=== PATIENT | female | born 1995 | race Caucasian/White ===

== ENCOUNTER 2016-09-29 16:59 | Emergency (ER) | payer MEDICAID, OTHER ==
[2016-09-29 17:43] VITALS: BP 135/76
--- NOTE | 2016-09-29 23:08 | Emergency Department Report ---
HPI - General Chief Complaint: Earache Time Seen by Provider: 09/29/16 23:01 - HPI HPI: Patient here reports robert ear pain, runny and congested nose. cough on/off for 9 days. She denies any fever. Pain is 9 out of 10 and throat. Negative chest pain or shortness of breath. She said [id number] cold and cough medicine is not helping. ED Past Medical Hx - Past Medical History Previous Medical History?: No Hx Hypertension: No Hx Diabetes: No Hx Deep Vein Thrombosis: No Hx Renal Disease: No Hx Sickle Cell Disease: No Hx Seizures: No Hx Asthma: No Hx HIV: No - Surgical History Past Surgical History?: No - Family History Family history: no significant - Social History Smoking Status: Former Smoker Substance Use Type: Alcohol, Non Opiate Pain - Medications Home Medications: Home Medications Medication Instructions Recorded Confirmed Last Taken Type Sulfamethoxazole/Trimethoprim 1 each PO BID #14 tablet 03/05/14 02/14/15 Unknown Rx [Bactrim Ds] Amoxicillin [Amoxicillin TAB] 875 mg PO BID #14 tablet 09/29/16 Unknown Rx Cetirizine HCl [ZyrTEC] 10 mg PO QDAY #20 capsule 09/29/16 Unknown Rx Fluticasone [Flonase] 1 spray NS QDAY #1 bottle 09/29/16 Unknown Rx Ibuprofen [Motrin 600 MG tab] 600 mg PO Q8H PRN #15 tablet 09/29/16 Unknown Rx predniSONE [Deltasone] 50 mg PO QDAY #5 tab 09/29/16 Unknown Rx ED Review of Systems ROS: Stated complaint: EAR/THROAT PAIN Other details as noted in HPI Comment: All other systems reviewed and negative Constitutional: denies: chills, fever, malaise, weakness ENT: ear pain, throat pain, congestion Respiratory: cough. denies: shortness of breath, SOB with exertion, SOB at rest , stridor, wheezing Cardiovascular: denies: chest pain, palpitations, edema, syncope Musculoskeletal: denies: back pain, arthralgia Skin: denies: rash Neurological: denies: headache, weakness, numbness, paresthesias, confusion, abnormal gait, vertigo Physical Exam - Physical Exam Vital Signs: Vital Signs 09/29/16 09/29/16 17:39 22:48 Temperature 98.5 F 98.5 F Pulse Rate 81 69 Respiratory 18 18 Rate Blood Pressure 135/76 O2 Sat by Pulse 99 100 Oximetry General: This is a 20-year-old female well-nourished well-developed in no acute distress. Physical Exam: Head: Normocephalic atraumatic Mouth: Moist, no pharyngeal exudate or erythema. Uvula is midline and oral airway is patent. No gingival enlargement or dental tenderness. No facial swelling. No peritonsillar abscesses. Neck: Supple, no C-spine tenderness, no tracheal deviation. Nontender to palpate. no adenopathy Ears: Bilateral TMs congested without erythema .bilateral EAC without any redness swelling or drainage Eyes: Bilateral pupils equal and reactive to light, bilateral EOM intact. Bilateral sclera and conjunctiva without injection. Normal accommodation Nose: Mucosa moist, positive congestion with erythema. Positive clear drainage. maxillary and frontal sinus non-tender to palpate. Lungs: Clear to auscultate bilaterally no rhonchi wheezes or rales. Normal work of breathing . Dry cough extremity; No CCE. +2 pulses. No neurovascular compromise Cardiovascular: S1-S2, regular rate rhythm. No murmurs. Skin: clean Dry and intact no rash no lesions Psych: Normal mood and behavior. ED Course Vital Signs 09/29/16 09/29/16 17:39 22:48 Temperature 98.5 F 98.5 F Pulse Rate 81 69 Respiratory 18 18 Rate Blood Pressure 135/76 O2 Sat by Pulse 99 100 Oximetry - Reevaluation(s) Reevaluation #1: 09/29/16 23:15 Patient stable throughout ED course ED Medical Decision Making - Medical Decision Making ED course: I discussed the patient is my physical finding she has sinus infection and will need to be treated with antibiotics consisting 9 days and she has tried [id number] medication which did not help. I instructed her that she needs to her nostrils with nasal saline twice a day. I discussed treatment plan with her. She reports understanding. Discharged home with prescription for amoxicillin, prednisone, Flonase and Motrin. Critical care attestation.: If time is entered above; I have spent that time in minutes in the direct care of this critically ill patient, excluding procedure time. ED Disposition Clinical Impression: Otalgia of both ears Acute ethmoidal sinusitis, unspecified Qualifiers: Recurrence: not specified as recurrent Qualified Code(s): J01.20 - Acute ethmoidal sinusitis, unspecified Pharyngitis Qualifiers: Pharyngitis/tonsillitis etiology: unspecified etiology Qualified Code(s): J02.9 - Acute pharyngitis, unspecified Disposition: DISCHARGED TO HOME OR SELFCARE Is pt being admited?: No Does the pt Need Aspirin: No Condition: Stable Instructions: Sinusitis (ED), Pharyngitis (ED), Earache (ED) Additional Instructions: Increase her fluid intake Take medication as prescribed followup with pcp in 3 to 5 days Prescriptions: Amoxicillin [Amoxicillin TAB] 875 mg PO BID #14 tablet predniSONE [Deltasone] 50 mg PO QDAY #5 tab Fluticasone [Flonase] 1 spray NS QDAY #1 bottle Ibuprofen [Motrin 600 MG tab] 600 mg PO Q8H PRN #15 tablet PRN Reason: Pain Cetirizine HCl [ZyrTEC] 10 mg PO QDAY #20 capsule Referrals: PRIMARY CARE, [Primary Care Provider] - 3-5 Days Forms: Work/School Release Form(ED)
== END 2016-09-29 23:30 | disposition home or self-care (01) ==
LOC: ED 16:59
DX: J01.20 Acute ethmoidal sinusitis, unspecified (principal); J02.9 Acute pharyngitis, unspecified; H92.03 Otalgia, bilateral; Z87.891 Personal history of nicotine dependence
CPT/HCPCS: 99282

== ENCOUNTER 2019-07-16 19:26 | Emergency (ER) | payer OTHER ==
[2019-07-16] MEDS ORDERED: IBUPROFEN 600 MG TAB PO ONE (21:09)
--- NOTE | 2019-07-16 21:09 | Emergency Department Report ---
Blank Doc - Documentation Documentation: 23-year-old female that presents with abscess in labia. This initial assessment/diagnostic orders/clinical plan/treatment(s) is/are subject to change based on patient's health status, clinical progression and re- assessment by fellow clinical providers in the ED. Further treatment and workup at subsequent clinical providers discretion. Patient/guardians urged not to elope from the ED as their condition may be serious if not clinically assessed and managed. Initial orders include: 1- Patient sent to [facility] for further evaluation and treatment 2- motrin for fever-RN to repeat vitals
[2019-07-17] MEDS ORDERED: LIDOCAINE (1%) 10 MG/1 ML VIAL 20 ML MDV INFILTRATI ONE (00:01)
[2019-07-17] MEDS ORDERED: HYDROcodone/ACETAMINOPHEN 5-325 MG TAB PO ONE (00:01)
[2019-07-17] MEDS ORDERED: AZITHROMYCIN 250 MG TAB PO ONE (00:30)
[2019-07-17] MEDS ORDERED: LIDOCAINE-MPF (1%) 10 MG/1 ML VIAL 5 ML INFILTRATI ONE (00:30)
--- NOTE | 2019-07-17 01:00 | Emergency Department Report ---
- General Chief complaint: Skin/Abscess/Foreign Body Stated complaint: FLU SX/VAG ABSCESS Time Seen by Provider: 07/16/19 21:08 Source: patient Mode of arrival: Ambulatory Limitations: No Limitations - History of Present Illness Initial comments: Ms. Contreras is a 23 y/o aaf with hx or recurring Bartholin abscess who presents for left labial abscess /cyst for last 3 days. symptoms include pain swelling , no drainage. There is no fever no chills , no n/v, no vaginal discharge or bleeding. symptoms are exacerbated by palpation, symptoms are relieved by nothing. MD complaint: abscess/boil Onset/Timin -: days(s) Tetanus Up to Date: yes Location: genitals Severity: moderate Severity scale (0 -10): 4 Quality: sharp Consistency: constant Improves with: none Worsens with: palpation, movement Associated symptoms: denies other symptoms Treatments Prior to Arrival: none - Related Data Previous Rx's Medication Instructions Recorded Last Taken Type Sulfamethoxazole/Trimethoprim 1 each PO BID #14 tablet 03/05/14 Unknown Rx [Bactrim Ds] Amoxicillin [Amoxicillin TAB] 875 mg PO BID #14 tablet 09/29/16 Unknown Rx Cetirizine HCl [ZyrTEC] 10 mg PO QDAY #20 capsule 09/29/16 Unknown Rx Fluticasone [Flonase] 1 spray NS QDAY #1 bottle 09/29/16 Unknown Rx Ibuprofen [Motrin 600 MG tab] 600 mg PO Q8H PRN #15 tablet 09/29/16 Unknown Rx predniSONE [Deltasone] 50 mg PO QDAY #5 tab 09/29/16 Unknown Rx ALBUTEROL Inhaler (OR & NICU) 2 puff IH Q6H PRN #1 inhalation 06/22/18 Unknown Rx [ProAir HFA Inhaler] Amoxicillin/K Clav Tab [Augmentin 1 tab PO Q12HR #20 tab 06/22/18 Unknown Rx 875MG TAB] Cetirizine HCl [ZyrTEC] 10 mg PO QAM 14 Days #14 capsule 06/22/18 Unknown Rx Fluticasone [Flonase] 1 spray NS QDAY 14 Days #1 bottle 06/22/18 Unknown Rx Ondansetron [Zofran Odt] 4 mg PO Q6H PRN #20 tab.rapdis 06/22/18 Unknown Rx guaiFENesin/CODEINE [Robitussin AC] 10 ml PO QHS PRN #70 oral.liqd 06/22/18 Unknown Rx methylPREDNISolone [Medrol Dose 4 mg PO DAILY #1 tab.ds.pk 06/22/18 Unknown Rx Carlos] cephALEXin [Keflex] 500 mg PO Q8HR 7 Days #21 cap 07/17/19 Unknown Rx metroNIDAZOLE [Flagyl] 500 mg PO BID 7 Days #14 tab 07/17/19 Unknown Rx traMADol [Ultram] 50 mg PO Q6HR PRN #12 tablet 07/17/19 Unknown Rx Allergies Allergy/AdvReac Type Severity Reaction Status Date / Time No Known Allergies Allergy Verified 02/14/15 16:33 Abscess Boil HPI - HPI Chief Complaint: Skin/Abscess/Foreign Body Stated Complaint: FLU SX/VAG ABSCESS Time Seen by Provider: 07/16/19 21:08 Home Medications: Previous Rx's Medication Instructions Recorded Last Taken Type Sulfamethoxazole/Trimethoprim 1 each PO BID #14 tablet 03/05/14 Unknown Rx [Bactrim Ds] Amoxicillin [Amoxicillin TAB] 875 mg PO BID #14 tablet 09/29/16 Unknown Rx Cetirizine HCl [ZyrTEC] 10 mg PO QDAY #20 capsule 09/29/16 Unknown Rx Fluticasone [Flonase] 1 spray NS QDAY #1 bottle 09/29/16 Unknown Rx Ibuprofen [Motrin 600 MG tab] 600 mg PO Q8H PRN #15 tablet 09/29/16 Unknown Rx predniSONE [Deltasone] 50 mg PO QDAY #5 tab 09/29/16 Unknown Rx ALBUTEROL Inhaler (OR & NICU) 2 puff IH Q6H PRN #1 inhalation 06/22/18 Unknown Rx [ProAir HFA Inhaler] Amoxicillin/K Clav Tab [Augmentin 1 tab PO Q12HR #20 tab 06/22/18 Unknown Rx 875MG TAB] Cetirizine HCl [ZyrTEC] 10 mg PO QAM 14 Days #14 capsule 06/22/18 Unknown Rx Fluticasone [Flonase] 1 spray NS QDAY 14 Days #1 bottle 06/22/18 Unknown Rx Ondansetron [Zofran Odt] 4 mg PO Q6H PRN #20 tab.rapdis 06/22/18 Unknown Rx guaiFENesin/CODEINE [Robitussin AC] 10 ml PO QHS PRN #70 oral.liqd 06/22/18 Unknown Rx methylPREDNISolone [Medrol Dose 4 mg PO DAILY #1 tab.ds.pk 06/22/18 Unknown Rx Carlos] cephALEXin [Keflex] 500 mg PO Q8HR 7 Days #21 cap 07/17/19 Unknown Rx metroNIDAZOLE [Flagyl] 500 mg PO BID 7 Days #14 tab 07/17/19 Unknown Rx traMADol [Ultram] 50 mg PO Q6HR PRN #12 tablet 07/17/19 Unknown Rx Allergies/Adverse Reactions: Allergies Allergy/AdvReac Type Severity Reaction Status Date / Time No Known Allergies Allergy Verified 02/14/15 16:33 ED Review of Systems ROS: Stated complaint: FLU SX/VAG ABSCESS Other details as noted in HPI Constitutional: denies: chills, fever Eyes: denies: eye pain, eye discharge, vision change ENT: denies: ear pain, throat pain Respiratory: denies: cough, shortness of breath, wheezing Cardiovascular: denies: chest pain, palpitations Endocrine: no symptoms reported Gastrointestinal: denies: abdominal pain, nausea, vomiting, diarrhea Genitourinary: other (cyst/abscess). denies: urgency, dysuria, frequency, he maturia, discharge Musculoskeletal: denies: back pain, joint swelling, arthralgia Skin: denies: rash, lesions Neurological: denies: headache, weakness, paresthesias Psychiatric: denies: anxiety, depression Hematological/Lymphatic: denies: easy bleeding, easy bruising ED Past Medical Hx - Past Medical History Hx Hypertension: No Hx Diabetes: No Hx Deep Vein Thrombosis: No Hx Renal Disease: No Hx Sickle Cell Disease: No Hx Seizures: No Hx Asthma: No Hx HIV: No Additional medical history: bronchitis - Social History Smoking Status: Current Every Day Smoker Substance Use Type: Alcohol - Medications Home Medications: Home Medications Medication Instructions Recorded Confirmed Last Taken Type Sulfamethoxazole/Trimethoprim 1 each PO BID #14 tablet 03/05/14 02/14/15 Unknown Rx [Bactrim Ds] Amoxicillin [Amoxicillin TAB] 875 mg PO BID #14 tablet 09/29/16 Unknown Rx Cetirizine HCl [ZyrTEC] 10 mg PO QDAY #20 capsule 09/29/16 Unknown Rx Fluticasone [Flonase] 1 spray NS QDAY #1 bottle 09/29/16 Unknown Rx Ibuprofen [Motrin 600 MG tab] 600 mg PO Q8H PRN #15 tablet 09/29/16 Unknown Rx predniSONE [Deltasone] 50 mg PO QDAY #5 tab 09/29/16 Unknown Rx ALBUTEROL Inhaler (OR & NICU) 2 puff IH Q6H PRN #1 inhalation 06/22/18 Unknown Rx [ProAir HFA Inhaler] Amoxicillin/K Clav Tab [Augmentin 1 tab PO Q12HR #20 tab 06/22/18 Unknown Rx 875MG TAB] Cetirizine HCl [ZyrTEC] 10 mg PO QAM 14 Days #14 capsule 06/22/18 Unknown Rx Fluticasone [Flonase] 1 spray NS QDAY 14 Days #1 bottle 06/22/18 Unknown Rx Ondansetron [Zofran Odt] 4 mg PO Q6H PRN #20 tab.rapdis 06/22/18 Unknown Rx guaiFENesin/CODEINE [Robitussin AC] 10 ml PO QHS PRN #70 oral.liqd 06/22/18 Unknown Rx methylPREDNISolone [Medrol Dose 4 mg PO DAILY #1 tab.ds.pk 06/22/18 Unknown Rx Carlos] cephALEXin [Keflex] 500 mg PO Q8HR 7 Days #21 cap 07/17/19 Unknown Rx metroNIDAZOLE [Flagyl] 500 mg PO BID 7 Days #14 tab 07/17/19 Unknown Rx traMADol [Ultram] 50 mg PO Q6HR PRN #12 tablet 07/17/19 Unknown Rx ED Physical Exam - General Limitations: No Limitations General appearance: alert, in no apparent distress - Head Head exam: Present: atraumatic, normocephalic - Eye Eye exam: Present: normal appearance - ENT ENT exam: Present: mucous membranes moist - Neck Neck exam: Present: normal inspection, full ROM. Absent: tenderness - Respiratory Respiratory exam: Present: normal lung sounds bilaterally. Absent: respiratory distress, wheezes, stridor - Cardiovascular Cardiovascular Exam: Present: regular rate, normal rhythm, normal heart sounds - GI/Abdominal GI/Abdominal exam: Present: soft, normal bowel sounds. Absent: distended, tenderness, guarding, rebound, rigid, bruit, hernia - Rectal Rectal exam: Present: deferred - External exam: Present: erythema, swelling, lesions (left bartholin abscess 2x3 cm ). Absent: lacerations, ecchymosis, bleeding - Extremities Exam Extremities exam: Present: normal inspection, full ROM. Absent: tenderness - Back Exam Back exam: Present: normal inspection, full ROM. Absent: tenderness, CVA tenderness (R), CVA tenderness (L) - Neurological Exam Neurological exam: Present: alert, oriented X3, CN II-XII intact, normal gait - Psychiatric Psychiatric exam: Present: normal affect, normal mood - Skin Skin exam: Present: warm, dry, intact, normal color. Absent: rash ED Course Vital Signs 07/16/19 19:33 Temperature 100.0 F H Pulse Rate 95 H Respiratory 14 Rate Blood Pressure 126/71 O2 Sat by Pulse 98 Oximetry - I & D Left Vagina Type of Procedure: Simple Site: Left labial Bartholin abscess 2x3 cm Blade Size: 11 I & D Procedure: betadine prep Progress: site cleaned with betadine solution, analgesia with 1% lidocaine 1 cc, incision with 11 blade x 1, moderate purulent drainage, wound irrigated with 10 sterile saline, all bleeding is controlled , pt tolerate procedure with minimal distress. ED Medical Decision Making - Medical Decision Making pt for I&D for bartholin cyst, see procedure note, all bleeding is controlled. pt tolerated procedure with minimal distress. pt given wound care instructions. pain is 0/10 at this time, pt will follow up with [facility] in 2-3 days.. Critical care attestation.: If time is entered above; I have spent that time in minutes in the direct care of this critically ill patient, excluding procedure time. ED Disposition Clinical Impression: Bartholin's gland abscess Disposition: TO HOME OR SELFCARE Is pt being admited?: No Does the pt Need Aspirin: No Condition: Stable Instructions: Incision and Drainage (ED), Bartholin Cyst (ED) Prescriptions: metroNIDAZOLE [Flagyl] 500 mg PO BID 7 Days #14 tab cephALEXin [Keflex] 500 mg PO Q8HR 7 Days #21 cap traMADol [Ultram] 50 mg PO Q6HR PRN #12 tablet PRN Reason: Pain Referrals: CHU CAMILO MD [Staff Physician] - 3-5 Days Forms: Work/School Release Form(ED) Time of Disposition: :07
[2019-07-17 01:18] VITALS: BP 145/76
== END 2019-07-17 01:16 | disposition home or self-care (01) ==
LOC: ED 19:26
DX: N75.1 Abscess of Bartholin's gland (principal); F17.200 Nicotine dependence, unspecified, uncomplicated; Z79.899 Other long term (current) drug therapy
CPT/HCPCS: 56420; 96372; 99282; J0696

== ENCOUNTER 2019-09-08 18:48 | Inpatient (IN) | payer SELFPAY ==
--- NOTE | 2019-09-08 22:01 | Event Note ---
ED Screening Note ED Screening Note: vomiting since 5 days ago states she has been taking zofran without relief has generalized weakness +cough no diarrhea no fever PMHx bronchitis no allergies to meds LNMP: 08/17/19 This initial assessment/diagnostic orders/clinical plan/treatment(s) is/are subject to change based on patients health status, clinical progression and re- assessment by fellow clinical providers in the ED. Further treatment and workup at subsequent clinical providers discretion. Patient/guardian urged not to elope from the ED as their condition may be serious if not clinically assessed and managed. Initial orders include: labs, UA, CXR
[2019-09-08] MEDS ORDERED: IPRATROPIUM/ALBUTEROL SULFATE 3 ML AMPUL.NEB IH ONE (22:07)
[2019-09-08 23:14] LABS: Hematocrit 49.5 % (30.3-42.9); Hemoglobin 16.1 gm/dl (10.1-14.3); Mean Corpuscular HGB Conc 33 % (30-34); Mean Corpuscular Volume 90 fl (79-97); Red Blood Count 5.52 M/mm3 (3.65-5.03); Red Cell Distribution Width 14.2 % (13.2-15.2)
[2019-09-08 23:38] LABS: Alanine Aminotransferase 129 units/L (7-56); BUN/Creatinine Ratio 11; Blood Urea Nitrogen 9 mg/dL (7-17); Hemolysis Index 3
--- NOTE | 2019-09-09 00:22 | XRay Report ---
CHEST PA AND LATERAL VIEWS INDICATION: cough, vomiting. COMPARISON: 06/22/2018 FINDINGS: Support devices: None Heart: Normal and unchanged Lungs/Pleura: There has now developed considerable interstitial and airspace parenchymal disease thro ughout both lungs, quite possibly pneumonia. No pleural fluid. IMPRESSION: 1. Very extensive, bilateral parenchymal disease, new since June 2018. Signer Name: Benigno Flowre MD Signed: 09/09/2019 12:18 AM Workstation Name: [id number]
[2019-09-09] MEDS ORDERED: SODIUM CHLORIDE 0.9% 1000 ML 1,000 ML IV ONE ×2 (00:55→05:15)
--- NOTE | 2019-09-09 01:12 | Emergency Department Report ---
ED General Adult HPI - General Chief complaint: Nausea/Vomiting/Diarrhea Stated complaint: VOMITING/FLU SYMPTOMS Time Seen by Provider: 09/08/19 22:00 Source: patient Mode of arrival: Ambulatory Limitations: No Limitations - History of Present Illness Initial comments: 23 yo female dx with flu 2 days ago at [facility]. Reports not getting better, fatigue, fever coughing up copious amount of thin secretion and multiple episodes of vomiting. Smokes 1pack cigarettes q 3 days. Denies any recent travels or known sick contacts. -: days(s) (2) Location: chest Quality: aching Improves with: none Worsens with: none Associated Symptoms: cough, nausea/vomiting Treatments Prior to Arrival: NSAID, other (ZOFRAN) - Related Data Previous Rx's Medication Instructions Recorded Last Taken Type Sulfamethoxazole/Trimethoprim 1 each PO BID #14 tablet 03/05/14 Unknown Rx [Bactrim Ds] Amoxicillin [Amoxicillin TAB] 875 mg PO BID #14 tablet 09/29/16 Unknown Rx Cetirizine HCl [ZyrTEC] 10 mg PO QDAY #20 capsule 09/29/16 Unknown Rx Fluticasone [Flonase] 1 spray NS QDAY #1 bottle 09/29/16 Unknown Rx Ibuprofen [Motrin 600 MG tab] 600 mg PO Q8H PRN #15 tablet 09/29/16 Unknown Rx predniSONE [Deltasone] 50 mg PO QDAY #5 tab 09/29/16 Unknown Rx ALBUTEROL Inhaler (OR & NICU) 2 puff IH Q6H PRN #1 inhalation 06/22/18 Unknown Rx [ProAir HFA Inhaler] Amoxicillin/K Clav Tab [Augmentin 1 tab PO Q12HR #20 tab 06/22/18 Unknown Rx 875MG TAB] Cetirizine HCl [ZyrTEC] 10 mg PO QAM 14 Days #14 capsule 06/22/18 Unknown Rx Fluticasone [Flonase] 1 spray NS QDAY 14 Days #1 bottle 06/22/18 Unknown Rx Ondansetron [Zofran Odt] 4 mg PO Q6H PRN #20 tab.rapdis 06/22/18 Unknown Rx guaiFENesin/CODEINE [Robitussin AC] 10 ml PO QHS PRN #70 oral.liqd 06/22/18 Unknown Rx methylPREDNISolone [Medrol Dose 4 mg PO DAILY #1 tab.ds.pk 06/22/18 Unknown Rx Carlos] cephALEXin [Keflex] 500 mg PO Q8HR 7 Days #21 cap 07/17/19 Unknown Rx metroNIDAZOLE [Flagyl] 500 mg PO BID 7 Days #14 tab 07/17/19 Unknown Rx traMADoL [Ultram] 50 mg PO Q6HR PRN #12 tablet 07/17/19 Unknown Rx Allergies Allergy/AdvReac Type Severity Reaction Status Date / Time No Known Allergies Allergy Verified 02/14/15 16:33 ED Review of Systems ROS: Stated complaint: VOMITING/FLU SYMPTOMS Other details as noted in HPI Comment: All other systems reviewed and negative Constitutional: chills, fever, malaise Respiratory: cough, other (chest wall pain ) Endocrine: no symptoms reported Gastrointestinal: nausea, vomiting. denies: abdominal pain, diarrhea, c onstipation Skin: denies: rash, lesions Neurological: denies: headache, weakness ED Past Medical Hx - Past Medical History Previous Medical History?: Yes Hx Hypertension: No Hx Diabetes: No Hx Deep Vein Thrombosis: No Hx Renal Disease: No Hx Sickle Cell Disease: No Hx Seizures: No Hx Asthma: No Hx HIV: No Additional medical history: bronchitis - Surgical History Past Surgical History?: Yes Additional Surgical History: C -section - Social History Smoking Status: Current Every Day Smoker Substance Use Type: None - Medications Home Medications: Home Medications Medication Instructions Recorded Confirmed Last Taken Type Sulfamethoxazole/Trimethoprim 1 each PO BID #14 tablet 03/05/14 02/14/15 Unknown Rx [Bactrim Ds] Amoxicillin [Amoxicillin TAB] 875 mg PO BID #14 tablet 09/29/16 Unknown Rx Cetirizine HCl [ZyrTEC] 10 mg PO QDAY #20 capsule 09/29/16 Unknown Rx Fluticasone [Flonase] 1 spray NS QDAY #1 bottle 09/29/16 Unknown Rx Ibuprofen [Motrin 600 MG tab] 600 mg PO Q8H PRN #15 tablet 09/29/16 Unknown Rx predniSONE [Deltasone] 50 mg PO QDAY #5 tab 09/29/16 Unknown Rx ALBUTEROL Inhaler (OR & NICU) 2 puff IH Q6H PRN #1 inhalation 06/22/18 Unknown Rx [ProAir HFA Inhaler] Amoxicillin/K Clav Tab [Augmentin 1 tab PO Q12HR #20 tab 06/22/18 Unknown Rx 875MG TAB] Cetirizine HCl [ZyrTEC] 10 mg PO QAM 14 Days #14 capsule 06/22/18 Unknown Rx Fluticasone [Flonase] 1 spray NS QDAY 14 Days #1 bottle 06/22/18 Unknown Rx Ondansetron [Zofran Odt] 4 mg PO Q6H PRN #20 tab.rapdis 06/22/18 Unknown Rx guaiFENesin/CODEINE [Robitussin AC] 10 ml PO QHS PRN #70 oral.liqd 06/22/18 Unknown Rx methylPREDNISolone [Medrol Dose 4 mg PO DAILY #1 tab.ds.pk 06/22/18 Unknown Rx Carlos] cephALEXin [Keflex] 500 mg PO Q8HR 7 Days #21 cap 07/17/19 Unknown Rx metroNIDAZOLE [Flagyl] 500 mg PO BID 7 Days #14 tab 07/17/19 Unknown Rx traMADoL [Ultram] 50 mg PO Q6HR PRN #12 tablet 07/17/19 Unknown Rx ED Physical Exam - General Limitations: No Limitations General appearance: alert, in no apparent distress - Head Head exam: Absent: atraumatic - Eye Eye exam: Present: normal appearance. Absent: scleral icterus - ENT ENT exam: Present: normal exam, mucous membranes moist - Neck Neck exam: Present: normal inspection, full ROM - Respiratory Respiratory exam: Present: rales (right base), decreased breath sounds (left lower and left mid lobe). Absent: respiratory distress - Cardiovascular Cardiovascular Exam: Present: regular rate, normal heart sounds - GI/Abdominal GI/Abdominal exam: Present: soft. Absent: distended, tenderness, guarding, rebound - Extremities Exam Extremities exam: Present: normal inspection. Absent: pedal edema - Back Exam Back exam: Present: normal inspection - Neurological Exam Neurological exam: Present: alert, oriented X3 - Skin Skin exam: Present: warm, dry, intact, normal color ED Course Vital Signs 09/08/19 09/09/19 09/09/19 19:42 01:17 02:40 Temperature 98.8 F 98.5 F Pulse Rate 102 H 99 H 104 H Respiratory 18 16 20 Rate Blood Pressure 117/80 Blood Pressure 125/82 [Right] O2 Sat by Pulse 90 100 Oximetry - Reevaluation(s) Reevaluation #1: 09/09/19 03:17 Pt in no distress IV fluids and IV levaquin infusing Lactic acid 1.30 Call made to Hospitalist to discuss admission she will call back Reevaluation #2: 09/09/19 03:[address] Liao ID per Dr. West request regarding appropriate antibiotic. ID agrees with Levaquin begin Tamiflu immediately. Dr. West notified of Dr. Liao's suggestion and first dose of Tamiflu ordered ED Medical Decision Making - Lab Data Result diagrams: 09/08/19 22:38 09/08/19 22:38 - Radiology Data Radiology results: report reviewed chest X-ray FINDINGS: Support devices: None Heart: Normal and unchanged Lungs/Pleura: There has now developed considerable interstitial and airspace parenchymal disease throughout both lungs, quite possibly pneumonia. No pleural fluid. IMPRESSION: 1. Very extensive, bilateral parenchymal disease, new since June 2018. - Medical Decision Making 23 yo female Dx with flu at outside facility 2 days ago She comes to this ER c/o fatigue, cough productive thin phlegm, fever nausea and vomiting. Smokes cigarettes 1 pack q 3 days. She denies any PMH Past surgical hx of 4 years ago. No recent travels or known sick contacts Upon exam fatigued lungs right base rales and left lower and left mid lobe decreased breath sounds Blood work significant for WBC 2.3 ( Leukopenia) HCG NEG CXR Very extensive, bilateral parenchymal disease, new since June 2018. Findings and plan of care discussed with Dr FARR Lactic acid Blood cultures x 2 IV, Bolus NS IV levaquin Tamiflu 75 Pt for admission bilateral Pneumonia Vital signs stable Critical Care Time: No Critical care attestation.: If time is entered above; I have spent that time in minutes in the direct care of this critically ill patient, excluding procedure time. ED Disposition Clinical Impression: Community acquired pneumonia, bilateral Leukopenia Qualifiers: Leukopenia type: unspecified Qualified Code(s): D72.819 - Decreased white blood cell count, unspecified Disposition: OP ADMIT IP TO THIS HOSP Is pt being admited?: Yes Does the pt Need Aspirin: No Condition: Stable Instructions: Bacterial Pneumonia (ED)
[2019-09-09 03:54] LABS: Total Cells Counted 100
[2019-09-09 03:55] LABS: Anisocytosis 1+; Basophils % (Manual) 0 % (0.0-1.8); Eosinophils % (Manual) 0 % (0.0-4.3); Platelet Estimate Consistent w Auto
[2019-09-09 03:58] LABS: Platelet Count 86 K/mm3 (140-440)
[2019-09-09] MEDS: OSELTAMIVIR 75 MG CAP PO SCH ×3 (04:13→22:44)
[2019-09-09 04:30] LABS: Bacteria,Urine 3+ /HPF (Negative); Bilirubin,Urine NEG (Negative); Blood,Urine LG (Negative); Color,Urine Red (Yellow); Mucus,Urine 3+ /HPF; Urobilinogen,Urine < 2.0 mg/dL (<2.0)
[2019-09-09 04:31] LABS: RBC,Urine > 182.0 /HPF (0.0-6.0)
[2019-09-09] MEDS ORDERED: SODIUM CHLORIDE 0.9% 1000 ML 1,000 ML IV SCH (05:15)
[2019-09-09] MEDS ORDERED: PIPERACIL/TAZOBACTA 4.5/NS 100 4.5 GM/100 ML VIAL IV ONE (05:30)
--- NOTE | 2019-09-09 12:44 | History and Physical Report ---
History of Present Illness Date of examination: 09/09/19 Date of admission: 09/09/19 05:16 Chief complaint: Cough and fever 3 days History of present illness: 23 yo female dx with flu 2 days ago at [facility] [place]. Reports not getting better, fatigue, fever coughing up copious amount of thin secretion and multiple episodes of vomiting. Smokes 1pack cigarettes q 3 days. Denies any recent travels or known sick contacts. Some wheezing present. Past Medical History Previous Medical History?: Yes Additional medical history: bronchitis Surgical History Past Surgical History?: Yes Additional Surgical History: C -section Social History Smoking Status: Current Every Day Smoker Substance Use Type: None Family History Htn Review of Systems ROS: Stated complaint: VOMITING/FLU SYMPTOMS Other details as noted in HPI Comment: All other systems reviewed and negative Constitutional: chills, fever, malaise Respiratory: cough, other (chest wall pain ) Endocrine: no symptoms reported Gastrointestinal: nausea, vomiting. denies: abdominal pain, diarrhea, constipation Skin: denies: rash, lesions Neurological: denies: headache, weakness x Medications and Allergies Allergies Allergy/AdvReac Type Severity Reaction Status Date / Time No Known Allergies Allergy Verified 02/14/15 16:33 Home Medications Medication Instructions Recorded Confirmed Last Taken Type No Known Home Medications [No 09/09/19 09/09/19 Unknown History Reported Home Medications] Active Meds: Active Medications Sodium Chloride (Nacl 0.9% 1000 Ml) 1,000 mls @ 150 mls/hr IV DIRECT LEN Last Admin: 09/09/19 09:41 Dose: 150 mls/hr Documented by: Ondansetron HCl (Zofran) 4 mg IV Q4H PRN PRN Reason: Nausea Oseltamivir Phosphate (Tamiflu) 75 mg PO BID LEN Stop: 09/13/19 10:01 Last Admin: 09/09/19 11:20 Dose: Not Given Documented by: Exam - Constitutional Vitals: Temp Pulse Resp BP Pulse Ox 99.5 F 100 H 15 117/67 94 09/09/19 10:27 09/09/19 10:27 09/09/19 10:27 09/09/19 10:27 09/09/19 10:27 General appearance: Present: no acute distress, well-nourished - EENT Eyes: Present: PERRL ENT: hearing intact, clear oral mucosa - Neck Neck: Present: supple, normal ROM - Respiratory Respiratory effort: normal Respiratory: bilateral: CTA, rhonchi, wheezing - Cardiovascular Heart rate: 78 Rhythm: regular Heart Sounds: Present: S1 & S2. Absent: rub, click - Extremities Extremities: no ischemia, pulses intact, pulses symmetrical, No edema Peripheral Pulses: within normal limits - Abdominal General gastrointestinal: Present: soft, non-tender, non-distended, normal bowel sounds Female genitourinary: Present: normal - Integumentary Integumentary: Present: clear, warm, dry - Musculoskeletal Musculoskeletal: gait normal, strength equal bilaterally - Psychiatric Psychiatric: appropriate mood/affect, intact judgment & insight - Neurologic Neurologic: CNII-XII intact, moves all extremities - Allied Health Allied health notes reviewed: nursing Results - Labs CBC & Chem 7: 09/08/19 22:38 09/08/19 22:38 Labs: Laboratory Last Values WBC 2.3 K/mm3 (4.5-11.0) L 09/08/19 22:38 RBC 5.52 M/mm3 (3.65-5.03) H 09/08/19 22:38 Hgb 16.1 gm/dl (10.1-14.3) H 09/08/19 22:38 Hct 49.5 % (30.3-42.9) H 09/08/19 22:38 MCV 90 fl (79-97) 09/08/19 22:38 MCH 29 pg (28-32) 09/08/19 22:38 MCHC 33 % (30-34) 09/08/19 22:38 RDW 14.2 % (13.2-15.2) 09/08/19 22:38 Plt Count 86 K/mm3 (140-440) L 09/08/19 22:38 Add Manual Diff Complete 09/08/19 22:38 Total Counted 100 09/08/19 22:38 Seg Neuts % (Manual) 81.0 % (40.0-70.0) H 09/08/19 22:38 Band Neutrophils % 1.0 % 09/08/19 22:38 Lymphocytes % (Manual) 9.0 % (13.4-35.0) L 09/08/19 22:38 Reactive Lymphs % (Man) 0 % 09/08/19 22:38 Monocytes % (Manual) 9.0 % (0.0-7.3) H 09/08/19 22:38 Eosinophils % (Manual) 0 % (0.0-4.3) 09/08/19 22:38 Basophils % (Manual) 0 % (0.0-1.8) 09/08/19 22:38 Metamyelocytes % 0 % 09/08/19 22:38 Myelocytes % 0 % 09/08/19 22:38 Promyelocytes % 0 % 09/08/19 22:38 Blast Cells % 0 % 09/08/19 22:38 Nucleated RBC % Not Reportable 09/08/19 22:38 Seg Neutrophils # Man 1.9 K/mm3 (1.8-7.7) 09/08/19 22:38 Band Neutrophils # 0.0 K/mm3 09/08/19 22:38 Lymphocytes # (Manual) 0.2 K/mm3 (1.2-5.4) L 09/08/19 22:38 Abs React Lymphs (Man) 0.0 K/mm3 09/08/19 22:38 Monocytes # (Manual) 0.2 K/mm3 (0.0-0.8) 09/08/19 22:38 Eosinophils # (Manual) 0.0 K/mm3 (0.0-0.4) 09/08/19 22:38 Basophils # (Manual) 0.0 K/mm3 (0.0-0.1) 09/08/19 22:38 Metamyelocytes # 0.0 K/mm3 09/08/19 22:38 Myelocytes # 0.0 K/mm3 09/08/19 22:38 Promyelocytes # 0.0 K/mm3 09/08/19 22:38 Blast Cells # 0.0 K/mm3 09/08/19 22:38 WBC Morphology Not Reportable 09/08/19 22:38 Hypersegmented Neuts Not Reportable 09/08/19 22:38 Hyposegmented Neuts Not Reportable 09/08/19 22:38 Hypogranular Neuts Not Reportable 09/08/19 22:38 Smudge Cells Not Reportable 09/08/19 22:38 Toxic Granulation Not Reportable 09/08/19 22:38 Toxic Vacuolation Not Reportable 09/08/19 22:38 Dohle Bodies Not Reportable 09/08/19 22:38 Pelger-Huet Anomaly Not Reportable 09/08/19 22:38 Basia Rods Not Reportable 09/08/19 22:38 Platelet Estimate Consistent w auto 09/08/19 22:38 Clumped Platelets Not Reportable 09/08/19 22:38 Plt Clumps, EDTA Not Reportable 09/08/19 22:38 Large Platelets Not Reportable 09/08/19 22:38 Giant Platelets Not Reportable 09/08/19 22:38 Platelet Satelliting Not Reportable 09/08/19 22:38 Plt Morphology Comment Not Reportable 09/08/19 22:38 RBC Morphology Not Reportable 09/08/19 22:38 Dimorphic RBCs Not Reportable 09/08/19 22:38 Polychromasia Not Reportable 09/08/19 22:38 Hypochromasia Not Reportable 09/08/19 22:38 Poikilocytosis Not Reportable 09/08/19 22:38 Anisocytosis 1+ 09/08/19 22:38 Microcytosis Not Reportable 09/08/19 22:38 Macrocytosis Not Reportable 09/08/19 22:38 Spherocytes Not Reportable 09/08/19 22:38 Pappenheimer Bodies Not Reportable 09/08/19 22:38 Sickle Cells Not Reportable 09/08/19 22:38 Target Cells Not Reportable 09/08/19 22:38 Tear Drop Cells Not Reportable 09/08/19 22:38 Ovalocytes Not Reportable 09/08/19 22:38 Helmet Cells Not Reportable 09/08/19 22:38 Oliver-Mcdermitt Bodies Not Reportable 09/08/19 22:38 Dickerson Rings Not Reportable 09/08/19 22:38 [place] Cells Not Reportable 09/08/19 22:38 Bite Cells Not Reportable 09/08/19 22:38 Crenated Cell Not Reportable 09/08/19 22:38 Elliptocytes Not Reportable 09/08/19 22:38 Acanthocytes (Spur) Not Reportable 09/08/19 22:38 Rouleaux Not Reportable 09/08/19 22:38 Hemoglobin C Crystals Not Reportable 09/08/19 22:38 Schistocytes Not Reportable 09/08/19 22:38 Malaria parasites Not Reportable 09/08/19 22:38 Ted Bodies Not Reportable 09/08/19 22:38 Hem Pathologist Commnt No 09/08/19 22:38 Sodium 136 mmol/L (137-145) L 09/08/19 22:38 Potassium 4.5 mmol/L (3.6-5.0) 09/08/19 22:38 Chloride 97.0 mmol/L (98-107) L 09/08/19 22:38 Carbon Dioxide 26 mmol/L (22-30) 09/08/19 22:38 Anion Gap 18 mmol/L 09/08/19 22:38 BUN 9 mg/dL (7-17) 09/08/19 22:38 Creatinine 0.8 mg/dL (0.7-1.2) 09/08/19 22:38 Estimated GFR > 60 ml/min 09/08/19 22:38 BUN/Creatinine Ratio 11 % 09/08/19 22:38 Glucose 146 mg/dL (65-100) H 09/08/19 22:38 Lactic Acid 1.90 mmol/L (0.7-2.0) 09/09/19 03:10 Calcium 9.0 mg/dL (8.4-10.2) 09/08/19 22:38 Total Bilirubin 1.10 mg/dL (0.1-1.2) 09/08/19 22:38 AST 145 units/L (5-40) H 09/08/19 22:38 ALT 129 units/L (7-56) H 09/08/19 22:38 Alkaline Phosphatase 93 units/L (35-129) 09/08/19 22:38 Total Protein 7.5 g/dL (6.3-8.2) 09/08/19 22:38 Albumin 4.0 g/dL (3.9-5) 09/08/19 22:38 Albumin/Globulin Ratio 1.1 % 09/08/19 22:38 HCG, Qual Negative (Negative) 09/08/19 22:38 Urine Color Red (Yellow) 09/08/19 Unknown Urine Turbidity Cloudy (Clear) 09/08/19 Unknown Urine pH 5.0 (5.0-7.0) 09/08/[address] 1.039 (1.003-1.030) H 09/08/19 Unknown Urine Protein 100 mg/dl mg/dL (Negative) 09/08/19 Unknown Urine Glucose (UA) 50 mg/dL (Negative) 09/08/19 Unknown Urine Ketones 20 mg/dL (Negative) 09/08/19 Unknown Urine Blood Lg (Negative) 09/08/19 Unknown Urine Nitrite Neg (Negative) 09/08/19 Unknown Urine Bilirubin Neg (Negative) 09/08/19 Unknown Urine Urobilinogen < 2.0 mg/dL (<2.0) 09/08/19 Unknown Ur Leukocyte Esterase Neg (Negative) 09/08/19 Unknown Urine WBC (Auto) 131.0 /HPF (0.0-6.0) H 09/08/19 Unknown Urine RBC (Auto) > 182.0 /HPF (0.0-6.0) 09/08/19 Unknown U Epithel Cells (Auto) 54.0 /HPF (0-13.0) H 09/08/19 Unknown Urine Bacteria (Auto) 3+ /HPF (Negative) 09/08/19 Unknown Urine WBC Clumps 3+ /HPF 09/08/19 Unknown Urine Mucus 3+ /HPF 09/08/19 Unknown - Imaging and Cardiology Chest x-ray: report reviewed Imaging and Cardiology: CXR IMPRESSION: 1. Very extensive, bilateral parenchymal disease, new since June 2018. Assessment and Plan Advance Directives: Yes (Full code) VTE prophylaxis?: Chemical - Patient Problems (1) Community acquired pneumonia, bilateral Current Visit: Yes Status: Acute Plan to address problem: Lydia ceftriaxone and Zithromax and Steroids and Duonebs ID Consult (2) Nicotine dependence Current Visit: Yes Status: Chronic Qualifiers: Nicotine product type: cigarettes Plan to address problem: COunselled Nicoderm patch initiated (3) DVT prophylaxis Current Visit: Yes Status: Acute Plan to address problem: On Heparin and GI prophylaxis
[2019-09-09] MEDS ORDERED: IBUPROFEN 600 MG TAB PO PRN (12:45)
[2019-09-09] MEDS ORDERED: oxyCODONE /ACETAMINOPHEN 5-325MG TAB PO PRN (12:45)
[2019-09-09] MEDS ORDERED: IPRATROPIUM/ALBUTEROL SULFATE 3 ML AMPUL.NEB IH PRN (12:46)
--- NOTE | 2019-09-09 15:03 | Consultation ---
History of Present Illness - Reason for Consult Consult date: 09/09/19 Pneumonia, Flu Requesting physician: ИВАН CABAN - History of Present Illness The patient is a 23-year-old female with no significant past medical history other than smoking started feeling fatigued with fever, cough, sputum production since last week. 2 days ago, on 09/07/2019, she went to [facility] and was diagnosed with the flu. She states she was given Zofran and ibuprofen but no Tamiflu. She also doesn't remember if it was influenza A or B. She came here with similar symptoms, chest x-ray showed bilateral pneumonia and hence was admitted. She denies any sick contacts. 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 No fever here. Continues to have cough, shortness of breath. Denies similar illness in the past, denies previous hospitalization. Review of Systems: General: no fevers,chills or rigors HEENT: no new visual disturbance Respiratory: + cough, sputum and shortness of breath Cardiovascular: No chest pain, syncope Gastrointestinal: + nausea, no diarrhea Genitourinary: No dysuria or hematuria Musculoskeletal: No new or worsening neck pain or back pain Neurologic: No headaches, seizures Hematologic: No easy bruising or bleeding Endocrine: No night sweats or acute weight loss Skin: negative for rash, jaundice Psychiatric: No suicidal or homicidal ideation Medications and Allergies Allergies Allergy/AdvReac Type Severity Reaction Status Date / Time No Known Allergies Allergy Verified 02/14/15 16:33 Home Medications Medication Instructions Recorded Confirmed Last Taken Type No Known Home Medications [No 09/09/19 09/09/19 Unknown History Reported Home Medications] Active Meds: Active Medications Acetaminophen (Tylenol) 650 mg PO Q4H PRN PRN Reason: Pain MILD(1-3)/Fever >100.5/MOSS Albuterol/Ipratropium (Duoneb *Not For Prn Use*) 1 ampul IH Q3H PRN PRN Reason: Wheezing Famotidine (Pepcid) 20 mg PO BID LEN Hydromorphone HCl (Dilaudid) 0.5 mg IV Q3H PRN PRN Reason: Pain , Severe (7-10) Sodium Chloride (Nacl 0.9% 1000 Ml) 1,000 mls @ 150 mls/hr IV DIRECT LEN Last Admin: 09/09/19 09:41 Dose: 150 mls/hr Documented by: Dextrose/Sodium Chloride (D5ns) 1,000 mls @ 75 mls/hr IV DIRECT LEN Azithromycin 500 mg/ Sodium (Chloride) 250 mls @ 250 mls/hr IV Q24HR [facility]; Protocol Ceftriaxone Sodium (Rocephin/Ns 2 Gm/100 Ml) 2 gm in 100 mls @ 200 mls/hr IV Q24HR LEN; Protocol Ibuprofen (Ibuprofen) 600 mg PO Q6H PRN PRN Reason: Pain, Mild (1-3) Methylprednisolone Sodium Succinate (Solu-Medrol) 60 mg IV Q8HR [facility] Ondansetron HCl (Zofran) 4 mg IV Q4H PRN PRN Reason: Nausea Oseltamivir Phosphate (Tamiflu) 75 mg PO BID [facility] Stop: 09/13/19 10:01 Last Admin: 09/09/19 11:20 Dose: Not Given Documented by: Oxycodone/Acetaminophen (Percocet 5/325) 1 tab PO Q6H PRN PRN Reason: Pain, Moderate (4-6) Sodium Chloride (Sodium Chloride Flush Syringe 10 Ml) 10 ml IV BID [facility] Sodium Chloride (Sodium Chloride Flush Syringe 10 Ml) 10 ml IV PRN PRN PRN Reason: LINE FLUSH Physical Examination - Physical Exam Narrative exam: Physical Exam: Constitutional: Alert, cooperative. Mild distress due to coughing Head, Ears, Nose: Normocephalic, atraumatic. External ears, nose normal Eyes: Conjunctivae/corneas clear. No icterus. No ptosis. Neck: Supple, no meningeal signs Oral: dentition fair, no thrush Cardiovascular: S1, S2 normal. Respiratory: Good air entry, clear to auscultation bilaterally GI: Soft, non-tender; bowel sounds normal. No peritoneal signs Musculoskeletal: No pedal edema, no cyanosis. Skin: No rash or abscess Hem/Lymphatic: No palpable cervical or supraclavicular nodes. No lymphangitis Psych: Mood ok. Affect normal Neurological: Awake, alert, oriented. No gross abnormality - Constitutional Vitals: Vital Signs Temp Pulse Resp BP Pulse Ox 99.5 F 100 H 15 117/67 94 09/09/19 10:27 09/09/19 10:27 09/09/19 10:09/09/19 10:09/09/19 10:27 Temperature -Last 24 Hours Temperature 99.5 F Temperature 98.2 F Temperature 98.2 F Temperature 98.5 F Temperature 98.5 F Temperature 98.8 F Results - Labs CBC & Chem 7: 09/08/19 22:38 09/08/19 22:38 Labs: Abnormal lab results 09/08/19 09/08/19 09/08/19 Range/Units 22:38 22:38 Unknown WBC 2.3 L (4.5-11.0) K/mm3 RBC 5.52 H (3.65-5.03) M/mm3 Hgb 16.1 H (10.1-14.3) gm/dl Hct 49.5 H (30.3-42.9) % Plt Count 86 L (140-440) K/mm3 Seg Neuts % (Manual) 81.0 H (40.0-70.0) % Lymphocytes % (Manual) 9.0 L (13.4-35.0) % Monocytes % (Manual) 9.0 H (0.0-7.3) % Lymphocytes # (Manual) 0.2 L (1.2-5.4) K/mm3 Sodium 136 L (137-145) mmol/L Chloride 97.0 L (98-107) mmol/L Glucose 146 H (65-100) mg/dL AST 145 H (5-40) units/L ALT 129 H (7-56) units/L Ur Specific [place] 1.039 H (1.003-1.030) Urine WBC (Auto) 131.0 H (0.0-6.0) /HPF U Epithel Cells (Auto) 54.0 H (0-13.0) /HPF - Imaging and Cardiology Chest x-ray: report reviewed, image reviewed (b/l pneumonia) Assessment and Plan Cultures: 09/09/2019 blood culture: In progress A/P: 23-year-old female with no significant past medical history other than smoking: #Bilateral pneumonia, recent diagnosis of influenza #Leukopenia, thrombocytopenia, elevated LFTs: Likely related to above. Monitor for now. Recs: MRSA PCR, sputum culture, procalcitonin ordered Continue IV ceftriaxone, azithromycin and PO Tamiflu Recheck CBC, BMP and LFTs Yimi Liao MD, FACP [facility] C: [phone] O: [phone] F: [phone]
[2019-09-09] MEDS: AZITHROMYCIN 500 MG in SODIUM CHLORIDE 0.9% 250ML 250 ML IV SCH (15:08)
[2019-09-09] MEDS: ONDANSETRON 4 MG/2 ML INJ IV PRN (15:09)
[2019-09-09] MEDS: methylPREDNISolone Sod Succinate 125 MG/2 ML INJ IV SCH ×2 (15:09→22:43)
[2019-09-09] MEDS: D5W/0.9% NACL 1,000 ML IV SCH (15:09)
[2019-09-09] MEDS: ACETAMINOPHEN 325 MG TAB PO PRN (17:17)
[2019-09-09] MEDS: HEPARIN 5,000 UNIT/1 ML VIAL SUB-Q SCH ×2 (17:18→22:44)
[2019-09-09] MEDS: cefTRIAXone/NS 2 GM/100 ML 2 GM/100 ML BAG IV SCH (18:31)
[2019-09-09] MEDS: FAMOTIDINE 20 MG TAB PO SCH (22:44)
[2019-09-10 04:26] LABS: Hematocrit 41.2 % (30.3-42.9); Hemoglobin 13.4 gm/dl (10.1-14.3); Mean Corpuscular HGB Conc 33 % (30-34); Mean Corpuscular Volume 89 fl (79-97); Red Blood Count 4.63 M/mm3 (3.65-5.03); Red Cell Distribution Width 14.2 % (13.2-15.2)
[2019-09-10 04:38] LABS: Platelet Count 80 K/mm3 (140-440)
[2019-09-10 04:41] LABS: Alanine Aminotransferase 88 units/L (7-56); Albumin 3.3 g/dL (3.9-5); BUN/Creatinine Ratio 10; Blood Urea Nitrogen 6 mg/dL (7-17); Calcium 8.3 mg/dL (8.4-10.2); Hemolysis Index 5
[2019-09-10 04:59] LABS: Bilirubin,Direct < 0.2 mg/dL (0-0.2)
[2019-09-10] MEDS: D5W/0.9% NACL 1,000 ML IV SCH (05:04)
[2019-09-10] MEDS: methylPREDNISolone Sod Succinate 125 MG/2 ML INJ IV SCH ×3 (05:05→22:00)
[2019-09-10 06:26] LABS: Anisocytosis 1+; Basophils % (Manual) 0 % (0.0-1.8); Eosinophils % (Manual) 0 % (0.0-4.3); Platelet Estimate Consistent w Auto; Total Cells Counted 100
[2019-09-10] MEDS: OSELTAMIVIR 75 MG CAP PO SCH ×2 (09:50→22:01)
[2019-09-10] MEDS: FAMOTIDINE 20 MG TAB PO SCH ×2 (09:50→22:01)
[2019-09-10] MEDS: HEPARIN 5,000 UNIT/1 ML VIAL SUB-Q SCH (09:50)
[2019-09-10] MEDS: AZITHROMYCIN 500 MG in SODIUM CHLORIDE 0.9% 250ML 250 ML IV SCH (09:51)
[2019-09-10] MEDS: cefTRIAXone/NS 2 GM/100 ML 2 GM/100 ML BAG IV SCH (09:51)
--- NOTE | 2019-09-10 12:48 | Progress Note ---
Assessment and Plan Cultures: 09/09/2019 blood culture: no growth in 24 hours sputum with oral contamination A/P: 23-year-old female with no significant past medical history other than smoking: #Bilateral pneumonia, recent diagnosis of influenza #Leukopenia, thrombocytopenia, elevated LFTs: Likely related to above. continue to monitor. Recs: f/u MRSA PCR procalcitonin is moderately elevated at 0.25 Continue IV ceftriaxone, azithromycin and PO Tamiflu monitor CBC and CMP Yimi Liao MD, FACP [facility] ([facility] C: [phone] O: [phone] F: [phone] Subjective Date of service: 09/10/19 Interval history: Fever once yesterday evening. Cough present. Feeling a little better today. Objective - Exam Narrative Exam: Physical Exam: Constitutional: Alert, cooperative. Mild distress due to coughing Head, Ears, Nose: Normocephalic, atraumatic. External ears, nose normal Eyes: Conjunctivae/corneas clear. No icterus. No ptosis. Neck: Supple, no meningeal signs Oral: dentition fair, no thrush Cardiovascular: S1, S2 normal. Respiratory: air entry fair bilaterally GI: Soft, non-tender; bowel sounds normal. No peritoneal signs Musculoskeletal: No pedal edema, no cyanosis. Skin: No rash or abscess Hem/Lymphatic: No palpable cervical or supraclavicular nodes. No lymphangitis Psych: Mood ok. Affect normal Neurological: Awake, alert, oriented. No gross abnormality - Constitutional Vitals: Vital Signs Temp Pulse Resp BP Pulse Ox 98.3 F 85 16 125/75 100 09/10/19 11:06 09/10/19 11:06 09/10/19 11:06 09/10/19 11:06 09/10/19 11:06 Temperature -Last 24 Hours Temperature 98.3 F Temperature 98.5 F Temperature 97.3 F Temperature 98.9 F Temperature 102.3 F - Labs CBC & Chem 7: 09/10/19 04:08 09/10/19 04:08 Labs: Abnormal lab results 09/10/19 09/10/19 Range/Units 04:08 04:08 WBC 1.4 L* (4.5-11.0) K/mm3 Plt Count 80 L (140-440) K/mm3 Seg Neuts % (Manual) 76.0 H (40.0-70.0) % Seg Neutrophils # Man 1.1 L (1.8-7.7) K/mm3 Lymphocytes # (Manual) 0.2 L (1.2-5.4) K/mm3 BUN 6 L (7-17) mg/dL Creatinine 0.6 L (0.7-1.2) mg/dL Glucose 234 H (65-100) mg/dL Calcium 8.3 L (8.4-10.2) mg/dL AST 94 H (5-40) units/L ALT 88 H (7-56) units/L Albumin 3.3 L (3.9-5) g/dL
--- NOTE | 2019-09-10 18:22 | Progress Note ---
Assessment and Plan Assessment and plan: 23 yo female dx with flu 2 days ago [place] [facility] [place] Reports not getting better, fatigue, fever coughing up copious amount of thin secretion and multiple episodes of vomiting. Smokes 1pack cigarettes q 3 days. Denies any recent travels or known sick contacts. Some wheezing present. Bilateral Pneumonia-Recent diagnosis of influenza Leukopenia Thrombocytopneia UTI --On Rocephin pending cultures Elevated LFT- improving Tobacco use disorder Plan Continue abx per ID Started on Tamiflu Taper steroids Add PRN nebs Counselled about Nicotine use and she verbalized understanding 15 mins counselling provided DVT Anticipate discharge in am if WBC improved. History Interval history: Patient seen and examined, still lethargic, reports that sometimes she uses her nikhil nebulizer at home. Hospitalist Physical - Physical exam Narrative exam: VITAL SIGNS: Reviewed. GENERAL: The patient appears normally developed, otherwise appears vital signs as documented. HEAD: No signs of head trauma. EYES: Pupils are equal. Extraocular motions intact. EARS: Hearing grossly intact. MOUTH: Oropharynx is normal. NECK: No adenopathy, no JVD. CHEST: Chest with clear breath sounds bilaterally. No wheezes, rales, or rhonchi. CARDIAC: Regular rate and rhythm. S1 and S2, without murmurs, gallops, or rubs. VASCULAR: No Edema. Peripheral pulses normal and equal in all extremities. ABDOMEN: Soft, non tender and non distended. No rebound or guarding, and no masses palpated. Bowel Sounds normal. MUSCULOSKELETAL: Good range of motion of all major joints. Extremities without clubbing, cyanosis or edema. NEUROLOGIC EXAM: Alert and oriented x 3 No focal sensory or strength deficits . Speech normal. Follows commands. PSYCHIATRIC: Mood normal. SKIN: detial exam as documented in skin assessment - Constitutional Vitals: Temp Pulse Resp BP Pulse Ox 98.3 F 85 16 125/75 100 09/10/19 11:06 09/10/19 11:06 09/10/19 11:06 09/10/19 11:06 09/10/19 11:06 General appearance: Present: no acute distress, well-nourished Results - Labs CBC & Chem 7: 09/10/19 04:08 09/10/19 04:08 Labs: Laboratory Last Values WBC 1.4 K/mm3 (4.5-11.0) L* 09/10/19 04:08 RBC 4.63 M/mm3 (3.65-5.03) 09/10/19 04:08 Hgb 13.4 gm/dl (10.1-14.3) 09/10/19 04:08 Hct 41.2 % (30.3-42.9) D 09/10/19 04:08 MCV 89 fl (79-97) 09/10/19 04:08 MCH 29 pg (28-32) 09/10/19 04:08 MCHC 33 % (30-34) 09/10/19 04:08 RDW 14.2 % (13.2-15.2) 09/10/19 04:08 Plt Count 80 K/mm3 (140-440) L 09/10/19 04:08 Add Manual Diff Complete 09/10/19 04:08 Total Counted 100 09/10/19 04:08 Seg Neuts % (Manual) 76.0 % (40.0-70.0) H 09/10/19 04:08 Band Neutrophils % 1.0 % 09/10/19 04:08 Lymphocytes % (Manual) 17.0 % (13.4-35.0) 09/10/19 04:08 Reactive Lymphs % (Man) 0 % 09/10/19 04:08 Monocytes % (Manual) 6.0 % (0.0-7.3) 09/10/19 04:08 Eosinophils % (Manual) 0 % (0.0-4.3) 09/10/19 04:08 Basophils % (Manual) 0 % (0.0-1.8) 09/10/19 04:08 Metamyelocytes % 0 % 09/10/19 04:08 Myelocytes % 0 % 09/10/19 04:08 Promyelocytes % 0 % 09/10/19 04:08 Blast Cells % 0 % 09/10/19 04:08 Nucleated RBC % Not Reportable 09/10/19 04:08 Seg Neutrophils # Man 1.1 K/mm3 (1.8-7.7) L 09/10/19 04:08 Band Neutrophils # 0.0 K/mm3 09/10/19 04:08 Lymphocytes # (Manual) 0.2 K/mm3 (1.2-5.4) L 09/10/19 04:08 Abs React Lymphs (Man) 0.0 K/mm3 09/10/19 04:08 Monocytes # (Manual) 0.1 K/mm3 (0.0-0.8) 09/10/19 04:08 Eosinophils # (Manual) 0.0 K/mm3 (0.0-0.4) 09/10/19 04:08 Basophils # (Manual) 0.0 K/mm3 (0.0-0.1) 09/10/19 04:08 Metamyelocytes # 0.0 K/mm3 09/10/19 04:08 Myelocytes # 0.0 K/mm3 09/10/19 04:08 Promyelocytes # 0.0 K/mm3 09/10/19 04:08 Blast Cells # 0.0 K/mm3 09/10/19 04:08 WBC Morphology Not Reportable 09/10/19 04:08 Hypersegmented Neuts Not Reportable 09/10/19 04:08 Hyposegmented Neuts Not Reportable 09/10/19 04:08 Hypogranular Neuts Not Reportable 09/10/19 04:08 Smudge Cells Not Reportable 09/10/19 04:08 Toxic Granulation Not Reportable 09/10/19 04:08 Toxic Vacuolation Not Reportable 09/10/19 04:08 Dohle Bodies Not Reportable 09/10/19 04:08 Pelger-Huet Anomaly Not Reportable 09/10/19 04:08 Basia Rods Not Reportable 09/10/19 04:08 Platelet Estimate Consistent w auto 09/10/19 04:08 Clumped Platelets Not Reportable 09/10/19 04:08 Plt Clumps, EDTA Not Reportable 09/10/19 04:08 Large Platelets Not Reportable 09/10/19 04:08 Giant Platelets Not Reportable 09/10/19 04:08 Platelet Satelliting Not Reportable 09/10/19 04:08 Plt Morphology Comment Not Reportable 09/10/19 04:08 RBC Morphology Not Reportable 09/10/19 04:08 Dimorphic RBCs Not Reportable 09/10/19 04:08 Polychromasia Not Reportable 09/10/19 04:08 Hypochromasia Not Reportable 09/10/19 04:08 Poikilocytosis Not Reportable 09/10/19 04:08 Anisocytosis 1+ 09/10/19 04:08 Microcytosis Not Reportable 09/10/19 04:08 Macrocytosis Not Reportable 09/10/19 04:08 Spherocytes Not Reportable 09/10/19 04:08 Pappenheimer Bodies Not Reportable 09/10/19 04:08 Sickle Cells Not Reportable 09/10/19 04:08 Target Cells Not Reportable 09/10/19 04:08 Tear Drop Cells Not Reportable 09/10/19 04:08 Ovalocytes Not Reportable 09/10/19 04:08 Helmet Cells Not Reportable 09/10/19 04:08 Oliver-Dante Bodies Not Reportable 09/10/19 04:08 [place] Rings Not Reportable 09/10/19 04:08 [place] Cells Not Reportable 09/10/19 04:08 Bite Cells Not Reportable 09/10/19 04:08 Crenated Cell Not Reportable 09/10/19 04:08 Elliptocytes Not Reportable 09/10/19 04:08 Acanthocytes (Spur) Not Reportable 09/10/19 04:08 Rouleaux Not Reportable 09/10/19 04:08 Hemoglobin C Crystals Not Reportable 09/10/19 04:08 Schistocytes Not Reportable 09/10/19 04:08 Malaria parasites Not Reportable 09/10/19 04:08 Ted Bodies Not Reportable 09/10/19 04:08 Hem Pathologist Commnt No 09/10/19 04:08 Sodium 141 mmol/L (137-145) 09/10/19 04:08 Potassium 4.5 mmol/L (3.6-5.0) 09/10/19 04:08 Chloride 104.4 mmol/L (98-107) 09/10/19 04:08 Carbon Dioxide 27 mmol/L (22-30) 09/10/19 04:08 Anion Gap 14 mmol/L 09/10/19 04:08 BUN 6 mg/dL (7-17) L 09/10/19 04:08 Creatinine 0.6 mg/dL (0.7-1.2) L 09/10/19 04:08 Estimated GFR > 60 ml/min 09/10/19 04:08 BUN/Creatinine Ratio 10 % 09/10/19 04:08 Glucose 234 mg/dL (65-100) H 09/10/19 04:08 Lactic Acid 1.90 mmol/L (0.7-2.0) 09/09/19 03:10 Calcium 8.3 mg/dL (8.4-10.2) L 09/10/19 04:08 Total Bilirubin 0.40 mg/dL (0.1-1.2) 09/10/19 04:08 Direct Bilirubin < 0.2 mg/dL (0-0.2) 09/10/19 04:08 Indirect Bilirubin 0.2 mg/dL 09/10/19 04:08 AST 94 units/L (5-40) H 09/10/19 04:08 ALT 88 units/L (7-56) H 09/10/19 04:08 Alkaline Phosphatase 79 units/L (35-129) 09/10/19 04:08 Total Protein 6.3 g/dL (6.3-8.2) 09/10/19 04:08 Albumin 3.3 g/dL (3.9-5) L 09/10/19 04:08 Albumin/Globulin Ratio 1.1 % 09/10/19 04:08 Procalcitonin 0.25 ng/mL (<0.15) 09/10/19 04:08 HCG, Qual Negative (Negative) 09/08/19 22:38 Urine Color Red (Yellow) 09/08/19 Unknown Urine Turbidity Cloudy (Clear) 09/08/19 Unknown Urine pH 5.0 (5.0-7.0) 09/08/19 Unknown Ur Specific [place] 1.039 (1.003-1.030) H 09/08/19 Unknown Urine Protein 100 mg/dl mg/dL (Negative) 09/08/19 Unknown Urine Glucose (UA) 50 mg/dL (Negative) 09/08/19 Unknown Urine Ketones 20 mg/dL (Negative) 09/08/19 Unknown Urine Blood Lg (Negative) 09/08/19 Unknown Urine Nitrite Neg (Negative) 09/08/19 Unknown Urine Bilirubin Neg (Negative) 09/08/19 Unknown Urine Urobilinogen < 2.0 mg/dL (<2.0) 09/08/19 Unknown Ur Leukocyte Esterase Neg (Negative) 09/08/19 Unknown Urine WBC (Auto) 131.0 /HPF (0.0-6.0) H 09/08/19 Unknown Urine RBC (Auto) > 182.0 /HPF (0.0-6.0) 09/08/19 Unknown U Epithel Cells (Auto) 54.0 /HPF (0-13.0) H 09/08/19 Unknown Urine Bacteria (Auto) 3+ /HPF (Negative) 09/08/19 Unknown Urine WBC Clumps 3+ /HPF 09/08/19 Unknown Urine Mucus 3+ /HPF 09/08/19 Unknown Active Medications - Current Medications Current Medications: Generic Name Dose Route Start Last Admin Trade Name Freq PRN Reason Stop Dose Admin Acetaminophen 650 mg 09/09/19 12:45 09/09/19 17:17 Tylenol PO 650 mg Q4H PRN Administration Pain MILD(1-3)/Fever >100.5/MOSS Albuterol/Ipratropium 1 ampul 09/09/19 12:46 Duoneb *Not For Prn Use* IH Q3H PRN Wheezing Famotidine 20 mg 09/09/19 22:00 09/10/19 09:50 Pepcid PO 20 mg BID LEN Administration Hydromorphone HCl 0.5 mg 09/09/19 12:45 Dilaudid IV Q3H PRN Pain , Severe (7-10) Sodium Chloride 1,000 mls @ 150 mls/hr 09/09/19 05:15 09/09/19 20:51 Nacl 0.9% 1000 Ml IV Infused DIRECT LEN Infusion Dextrose/Sodium Chloride 1,000 mls @ 75 mls/hr 09/09/19 13:00 09/10/19 05:04 D5ns IV 75 mls/hr DIRECT LEN Administration Azithromycin 500 mg/ Sodium 250 mls @ 250 mls/hr 09/09/19 13:00 09/10/19 09:51 Chloride IV 100 mls/hr Q24HR LEN Administration Protocol Ceftriaxone Sodium 2 gm in 100 mls @ 200 mls/hr 09/09/19 13:00 09/10/19 09:51 Rocephin/Ns 2 Gm/100 Ml IV 200 mls/hr Q24HR LEN Administration Protocol Ibuprofen 600 mg 09/09/19 12:45 Ibuprofen PO Q6H PRN Pain, Mild (1-3) Methylprednisolone Sodium Succinate 60 mg 09/09/19 14:00 09/10/19 14:07 Solu-Medrol IV 60 mg Q8HR LEN Administration Ondansetron HCl 4 mg 09/09/19 12:03 09/09/19 15:09 Zofran IV 4 mg Q4H PRN Administration Nausea Oseltamivir Phosphate 75 mg 09/09/19 04:00 09/10/19 09:50 Tamiflu PO 09/13/19 10:01 75 mg BID LEN Administration Oxycodone/Acetaminophen 1 tab 09/09/19 12:45 Percocet 5/325 PO Q6H PRN Pain, Moderate (4-6) Sodium Chloride 10 ml 09/09/19 13:00 09/10/19 09:52 Sodium Chloride Flush Syringe 10 Ml IV 10 ml BID LEN Administration Sodium Chloride 10 ml 09/09/19 12:45 Sodium Chloride Flush Syringe 10 Ml IV PRN PRN LINE FLUSH Nutrition/Malnutrition Assess - Dietary Evaluation Nutrition/Malnutrition Findings: Nutrition Notes Start: 09/10/19 14:30 Freq: Status: Active Protocol: Document 09/10/19 14:30 LM (Rec: 09/10/19 14:42 LM [email or web address]) Nutrition Notes Need for Assessment generated from: MD Order,sample supervisor,MST Initial or Follow up Assessment Other Pertinent Diagnosis Influenza, pneumonia, UTI, nicotine dependence Current Diet Regular Labs/Tests BG 234 Pertinent Medications Solumedrol Height 5 ft 5 in Weight 73 kg Usual Body Weight 84 kg [place] Body Weight (kg) 56.81 BMI 26.7 Weight change and time frame 13% wt loss (timeframe unknown ) Weight Status Overweight Subjective/Other Information MD consult for ONS and RN screen for MST. Pt stated she has not been eating well since 1 week ago and feels like she has lost wt. Pt's UBW is 185 lb. Pt said she started to eat again yesterday but does not want to eat too much too quickly. MD ordered Ensure vanilla for pt. Pt would like to try chocolate instead. Burn Absent Trauma Absent GI Symptoms None Current % PO Poor (25-49%) Energy Intake (severe) < or equal to 50% Estimated Energy Requirement > or equal to 5 days Interpretation of Weight Loss (non- 1-2% in 1 week severe) #1 Nutrition Diagnosis Malnutrition Etiology decreased appetite secondary to Influenza, pneumonia As Evidenced by Signs and Symptoms Pt with 13% wt loss, <50% EER >5 days Is patient on ventilator? No Is Patient Ambulatory and/or Out of Bed Yes REE-([facility]-ambulatory/OOB) [ 1918.644 [id number]] Calculation Used for Recommendations [facility] Additional Notes Protein: 58-73g (0.8-1g/kg) Fluid: 1 ml/kcal Nutrition Intervention Change Diet Order: Continue regular Add Supplement/Snack (indicate name/kcal Ensure Enlive chocolate BID /protein ) Provides kCal: 700 Provides Protein (gm) 40 Goal #1 Meet at least 75% of energy and protein needs Anticipated Discharge Needs: Regular diet Follow-Up By: 09/14/19 Additional Comments F/U for PO/ONS intakes
[2019-09-11] MEDS: D5W/0.9% NACL 1,000 ML IV SCH ×2 (00:27→21:31)
[2019-09-11] MEDS: methylPREDNISolone Sod Succinate 125 MG/2 ML INJ IV SCH ×3 (05:35→21:32)
[2019-09-11 08:27] LABS: Hematocrit 36.3 % (30.3-42.9); Hemoglobin 11.9 gm/dl (10.1-14.3); Mean Corpuscular HGB Conc 33 % (30-34); Mean Corpuscular Volume 89 fl (79-97); Platelet Count 114 K/mm3 (140-440); Red Cell Distribution Width 14.4 % (13.2-15.2)
[2019-09-11] MEDS: cefTRIAXone/NS 2 GM/100 ML 2 GM/100 ML BAG IV SCH (10:25)
[2019-09-11] MEDS: OSELTAMIVIR 75 MG CAP PO SCH ×2 (10:27→21:33)
[2019-09-11] MEDS: FAMOTIDINE 20 MG TAB PO SCH ×2 (10:27→21:33)
[2019-09-11] MEDS: AZITHROMYCIN 500 MG in SODIUM CHLORIDE 0.9% 250ML 250 ML IV SCH (11:40)
--- NOTE | 2019-09-11 13:59 | Progress Note ---
Assessment and Plan Cultures: 09/09/2019 blood culture: no growth in 24 hours sputum with oral contamination MRSA nasal PCR: positive A/P: 23-year-old female with no significant past medical history other than smoking: #Bilateral pneumonia, recent diagnosis of influenza: procalcitonin is moderately elevated at 0.25. #Leukopenia, thrombocytopenia, elevated LFTs: Likely related to above. Continue to monitor, improving. Recs: MRSA PCR +ve, given lack of clinical improvement, will switch to PO linezolid 600 mg BID Ceftriaxone and Azithromycin discontinued Continue PO Tamiflu x 5 days total monitor CBC and CMP Yimi Liao MD, FACP [facility] C: [phone] O: [phone] F: [phone] Subjective Date of service: 09/11/19 Interval history: No fever but doesn't feel as well. Still short of breath. MRSA nasal PCR came back positive. cough + Objective - Exam Narrative Exam: Physical Exam: Constitutional: Alert, cooperative. Mild distress due to coughing Head, Ears, Nose: Normocephalic, atraumatic. External ears, nose normal Eyes: Conjunctivae/corneas clear. No icterus. No ptosis. Neck: Supple, no meningeal signs Cardiovascular: S1, S2 normal. Respiratory: b/l wheezing + GI: Soft, non-tender; bowel sounds normal. No peritoneal signs Musculoskeletal: No pedal edema, no cyanosis. Skin: No rash or abscess Hem/Lymphatic: No palpable cervical or supraclavicular nodes. No lymphangitis Psych: Mood ok. Affect normal Neurological: Awake, alert, oriented. No gross abnormality - Constitutional Vitals: Vital Signs Temp Pulse Resp BP Pulse Ox 98.1 F 80 24 105/60 89 09/11/19 04:17 09/11/19 04:17 09/11/19 04:17 09/11/19 04:17 09/11/19 04:17 Temperature -Last 24 Hours Temperature 98.1 F Temperature 98.6 F Temperature 98.2 F - Labs CBC & Chem 7: 09/11/19 07:54 09/10/19 04:08 Labs: Abnormal lab results 09/11/19 Range/Units 07:54 WBC 3.1 L (4.5-11.0) K/mm3 Plt Count 114 L (140-440) K/mm3
[2019-09-11] MEDS: LINEZOLID 600 MG TAB PO SCH ×2 (16:30→23:23)
--- NOTE | 2019-09-11 18:14 | Progress Note ---
Subjective Date of service: 09/11/19 Interval history: 23 yo female dx with flu 2 days ago at [facility] [place]. Reports not getting better, fatigue, fever coughing up copious amount of thin secretion and multiple episodes of vomiting. Smokes 1pack cigarettes q 3 days. Denies any recent travels or known sick contacts. Some wheezing present. Bilateral Pneumonia-Recent diagnosis of influenza Leukopenia Thrombocytopneia UTI --On Rocephin pending cultures Elevated LFT- improving Tobacco use disorder Plan Continue abx per ID Started on linezolid Continue Tamiflu Taper steroids Add PRN nebs Counselled about Nicotine use and she verbalized understanding 15 mins counselling provided DVT Anticipate discharge in am if WBC improved. Patient seen and examined Alert and awake denies fever or chills, has mild cough - Physical exam Narrative exam: VITAL SIGNS: Reviewed. GENERAL: Well-developed well-nourished. HEAD: No signs of head trauma. EYES: Pupils are equal. Extraocular motions intact. EARS: Hearing grossly intact. MOUTH: Oropharynx is normal. NECK: No adenopathy, no JVD. CHEST: Chest with clear breath sounds bilaterally. No wheezes, rales, or rhonchi. CARDIAC: Regular rate and rhythm. S1 and S2, without murmurs, gallops, or rubs. VASCULAR: No Edema. Peripheral pulses normal and equal in all extremities. ABDOMEN: Soft, non tender and non distended. NEUROLOGIC EXAM: Alert and oriented x 3 No focal sensory or strength deficits. Speech normal. PSYCHIATRIC: Mood normal. Objective - Labs CBC & Chem 7: 09/11/19 07:54 09/10/19 04:08 Labs: Abnormal lab results 09/11/19 Range/Units 07:54 WBC 3.1 L (4.5-11.0) K/mm3 Plt Count 114 L (140-440) K/mm3
[2019-09-12 05:04] LABS: Hematocrit 36.7 % (30.3-42.9); Hemoglobin 11.9 gm/dl (10.1-14.3); Red Blood Count 4.12 M/mm3 (3.65-5.03); Red Cell Distribution Width 14.1 % (13.2-15.2)
[2019-09-12] MEDS: methylPREDNISolone Sod Succinate 125 MG/2 ML INJ IV SCH ×3 (05:41→21:57)
[2019-09-12] MEDS: LINEZOLID 600 MG TAB PO SCH ×2 (09:55→21:59)
[2019-09-12] MEDS: OSELTAMIVIR 75 MG CAP PO SCH ×2 (09:55→21:57)
[2019-09-12] MEDS: FAMOTIDINE 20 MG TAB PO SCH ×2 (09:55→21:57)
[2019-09-12] MEDS: D5W/0.9% NACL 1,000 ML IV SCH ×2 (09:58→21:58)
[2019-09-12] MEDS: ONDANSETRON 4 MG/2 ML INJ IV PRN (10:41)
--- NOTE | 2019-09-12 13:30 | Progress Note ---
Subjective Date of service: 09/12/19 Interval history: 23 yo female dx with flu 2 days ago [place] [facility] [place] Reports not getting better, fatigue, fever cough is improving. Smokes 1pack cigarettes q 3 days. Denies any recent travels or known sick contacts. Some wheezing present. Bilateral Pneumonia-Recent diagnosis of influenza Leukopenia- WBC count upto 4 k today Thrombocytopneia- improving well. up to 139 k today UTI --On Rocephin pending cultures Elevated LFT- improving Tobacco use disorder Hypoxia: O2 sat on RA at rest is 82%. not ready for discharge Plan Continue abx per ID Started on linezolid Continue Tamiflu Taper steroids Add PRN nebs Counselled about Nicotine use and she verbalized understanding 15 mins counselling provided DVT Patient seen and examined Cough is better Still feels short of breath ID note reviewed She is hypoxic on room air - Physical exam Narrative exam: VITAL SIGNS: Reviewed. GENERAL: Well-developed well-nourished. HEAD: No signs of head trauma. EYES: Pupils are equal. Extraocular motions intact. EARS: Hearing grossly intact. MOUTH: Oropharynx is normal. NECK: No adenopathy, no JVD. CHEST: Chest with clear breath sounds bilaterally. No wheezes, rales, or rhonchi. CARDIAC: Regular rate and rhythm. S1 and S2, without murmurs, gallops, or rubs. VASCULAR: No Edema. Peripheral pulses normal and equal in all extremities. ABDOMEN: Soft, non tender and non distended. NEUROLOGIC EXAM: Alert and oriented x 3 No focal sensory or strength deficits. Speech normal. PSYCHIATRIC: Mood normal. Objective - Constitutional Vitals: Vital Signs - 12hr 09/12/19 05:31 Temperature 98.9 F Pulse Rate 90 Respiratory 22 Rate Blood Pressure 144/80 O2 Sat by Pulse 82 L Oximetry - Labs CBC & Chem 7: 09/12/19 04:35 09/10/19 04:08 Labs: Abnormal lab results 09/12/19 Range/Units 04:35 WBC 4.1 L (4.5-11.0) K/mm3 Plt Count 139 L (140-440) K/mm3
[2019-09-12] MEDS: HEPARIN 5,000 UNIT/1 ML VIAL SUB-Q SCH ×2 (13:40→22:00)
[2019-09-12] MEDS ORDERED: ALBUTEROL 2.5 MG/3 ML NEBU IH PRN (17:55)
[2019-09-12] MEDS: IPRATROPIUM/ALBUTEROL SULFATE 3 ML AMPUL.NEB IH SCH (19:56)
[2019-09-13] MEDS: HYDROmorphone 1 MG/1 ML INJ IV PRN ×2 (01:46→10:26)
[2019-09-13] MEDS: ONDANSETRON 4 MG/2 ML INJ IV PRN (01:55)
[2019-09-13 05:26] LABS: Hematocrit 38.6 % (30.3-42.9); Hemoglobin 12.6 gm/dl (10.1-14.3); Mean Corpuscular HGB Conc 33 % (30-34); Mean Corpuscular Volume 88 fl (79-97); Platelet Count 151 K/mm3 (140-440); Red Blood Count 4.37 M/mm3 (3.65-5.03); Red Cell Distribution Width 14.1 % (13.2-15.2)
[2019-09-13] MEDS: methylPREDNISolone Sod Succinate 125 MG/2 ML INJ IV SCH ×3 (06:25→21:18)
[2019-09-13] MEDS: HEPARIN 5,000 UNIT/1 ML VIAL SUB-Q SCH ×3 (06:25→21:18)
[2019-09-13] MEDS: IPRATROPIUM/ALBUTEROL SULFATE 3 ML AMPUL.NEB IH SCH ×3 (07:52→20:11)
[2019-09-13] MEDS: FAMOTIDINE 20 MG TAB PO SCH ×2 (09:34→21:18)
[2019-09-13] MEDS: LINEZOLID 600 MG TAB PO SCH ×2 (09:34→21:18)
[2019-09-13] MEDS: OSELTAMIVIR 75 MG CAP PO SCH (09:34)
--- NOTE | 2019-09-13 14:08 | Progress Note ---
Assessment and Plan Bilateral Pneumonia-Recent diagnosis of influenza Leukopenia- WBC count improved Thrombocytopneia- improving well. UTI --On Rocephin pending cultures Elevated LFT- improving Tobacco use disorder Acute Hypoxic respiratory failure: O2 sat on RA at rest is 82%. not ready for discharge Plan Continue abx per ID Started on linezolid Continue Tamiflu Taper steroids Add PRN nebs Counselled about Nicotine use and she verbalized understanding 15 mins counselling provided DVT Px. Assist for home oxygen requirement - patient uninsured Brief History: 23 yo female dx with flu 2 days ago at [facility] [place]. Reports not getting better, fatigue, fever cough is improving. Smokes 1pack cigarettes q 3 days. Denies any recent travels or known sick contacts. Some wheezing present. Radiological data: Chest x-ray: Extensive bilateral pneumonia Hospitalist Physical exam: GENERAL: well-developed and well-nourished female lying on bed appeared to be in no discomfort. HEENT: Normocephalic. Atraumatic. No conjunctival congestion or icterus. Patient has moist mucous membranes. NECK: Supple. Trachea midline. CHEST/LUNGS: Coarse breath sounds auscultated bilaterally, breathing nonlabored. HEART/CARDIOVASCULAR: Regular in rate and rhythm. S1 and S2 positive. ABDOMEN: Abdomen is soft, nontender. Patient has normal bowel sounds. SKIN: There is no rash. Warm and dry. NEURO: No focal motor deficit. Follows command. MUSCULOSKELETAL: No joint effusion or tenderness. EXTRIMITY: No edema, no cyanosis or clubbing. PSYCH: Cooperative. Subjective Date of service: 09/13/19 Interval history: Patient seen and examined Cough is better Still feels short of breath ID note reviewed She remains hypoxic on room air Objective - Constitutional Vitals: Vital Signs - 12hr 09/13/19 09/13/19 09/13/19 04:44 07:53 11:52 Temperature 98.1 F 98.2 F Pulse Rate 61 64 Pulse Rate [ 103 H Bilateral] Respiratory 16 18 Rate Respiratory 20 Rate [Bilateral ] Blood Pressure 157/84 168/95 O2 Sat by Pulse 98 98 96 Oximetry 09/13/19 14:02 Temperature Pulse Rate Pulse Rate [ 88 Bilateral] Respiratory Rate Respiratory 16 Rate [Bilateral ] Blood Pressure O2 Sat by Pulse Oximetry - Labs CBC & Chem 7: 09/13/19 04:34 09/10/19 04:08
[2019-09-13] MEDS: D5W/0.9% NACL 1,000 ML IV SCH (16:28)
[2019-09-13] MEDS: ACETAMINOPHEN 325 MG TAB PO PRN (21:18)
[2019-09-14] MEDS: methylPREDNISolone Sod Succinate 125 MG/2 ML INJ IV SCH (05:54)
[2019-09-14] MEDS: D5W/0.9% NACL 1,000 ML IV SCH (05:55)
[2019-09-14] MEDS: HEPARIN 5,000 UNIT/1 ML VIAL SUB-Q SCH ×2 (05:55→14:30)
[2019-09-14] MEDS: IPRATROPIUM/ALBUTEROL SULFATE 3 ML AMPUL.NEB IH SCH ×2 (08:44→14:55)
[2019-09-14] MEDS: FAMOTIDINE 20 MG TAB PO SCH (09:40)
[2019-09-14] MEDS: LINEZOLID 600 MG TAB PO SCH (09:40)
[2019-09-14] MEDS ORDERED: LISINOPRIL 20 MG TAB PO SCH (10:00)
[2019-09-14] MEDS ORDERED: methylPREDNISolone Sod Succinate 125 MG/2 ML INJ IV SCH (10:00)
[2019-09-14 12:39] VITALS: BP 148/89
--- NOTE | 2019-09-14 12:54 | Discharge Summary ---
Providers - Providers Date of Admission: 09/09/19 05:16 Date of discharge: 09/14/19 Attending physician: MYRTLE IBRAHIM 09/09/19 05:15 Consult to Physician [CONS] Routine Comment: MARY Ozuna spoke with Dr. Liao @ [phone] Consulting Provider: DAVION LIAO Physician Instructions: Reason For Exam: pna/flu 09/14/19 08:05 Consult to Case Management [CONS] Routine Services Needed at Discharge: Home O2 Notified:: erika Primary care physician: MACHINE TRACER Hospitalization Condition: Stable Pertinent studies: CXR Hospital course: The patient is a 23-year-old female with no significant past medical history other than smoking started feeling fatigued with fever, cough, sputum production since last week. On 09/07/2019, she went to [facility] and was diagnosed with the flu. She also doesn't remember if it was influenza A or B. She came here with similar symptoms, chest x-ray showed bilateral pneumonia and hence was admitted. She was started on Tamiflu and Zyvox as her MRSA on nares was positive. She also noted to have hypoxic respiratory failure requiring supplemental O2. Patient was slowly weaned off from the oxygen, her symptoms improved with supportive care. ID was following the patient. Patient was conditioned room in stable condition with doxycycline 100 MG twice a day 6 days. Discharge diagnosis: Acute Hypoxic respiratory failure: O2 sat on RA at rest is 82%. - Resolved with medical management Bilateral Pneumonia-post influenza - We'll continue doxycycline 100 MG twice a day for 6 more days Recent Influenza, completed Tamiflu Leukopenia- due to PNA/influenza -WBC count improved Thrombocytopneia- improving well. UTI --placed on abx Elevated LFT- improved Tobacco use disorder, counseled for cessation HTN, new diagnosis - advised for cardiac diet, placed on lisinopril Disposition: -01 TO HOME OR SELFCARE Time spent for discharge: 34 minutes Core Measure Documentation - Palliative Care Palliative Care/ Comfort Measures: Not Applicable - Core Measures Any of the following diagnoses?: none Exam - Constitutional Vitals: Temp Pulse Resp BP Pulse Ox 97.8 F 77 20 148/89 97 09/14/19 12:18 09/14/19 12:18 09/14/19 12:18 09/14/19 12:18 09/14/19 12:18 General appearance: Present: no acute distress, well-nourished - EENT Eyes: Present: PERRL ENT: hearing intact, clear oral mucosa - Neck Neck: Present: supple, normal ROM - Respiratory Respiratory effort: normal Respiratory: bilateral: wheezing (few wheezes positive bilaterally) - Cardiovascular Heart Sounds: Present: S1 & S2. Absent: rub, click - Extremities Extremities: pulses symmetrical, No edema Peripheral Pulses: within normal limits - Abdominal General gastrointestinal: Present: soft, non-tender, non-distended, normal bowel sounds Female genitourinary: Present: normal - Integumentary Integumentary: Present: clear, warm, dry - Musculoskeletal Musculoskeletal: gait normal, strength equal bilaterally - Psychiatric Psychiatric: appropriate mood/affect, intact judgment & insight - Neurologic Neurologic: CNII-XII intact, moves all extremities Plan Activity: advance as tolerated Weight Bearing Status: Weight Bear as Tolerated Diet: low fat, low salt Follow up with: PRIMARY CARE, [Primary Care Provider] - 7 Days DAVION LIAO MD [Staff Physician] - 7 Days Prescriptions: Doxycycline Hyclate [Doxycycline Hyclate TAB] 100 mg PO Q12HR #12 tab ALBUTEROL NEB's [Proventil 0.083% NEBS] 2.5 mg IH Q4H PRN #30 nebu PRN Reason: Shortness Of Breath lisinopriL [Zestril TAB] 20 mg PO QDAY #30 tablet
--- NOTE | 2019-09-14 13:52 | Progress Note ---
Assessment and Plan Cultures: 09/09/2019 blood culture: no growth in 24 hours sputum with oral contamination MRSA nasal PCR: positive A/P: 23-year-old female with no significant past medical history other than smoking: #Bilateral pneumonia, recent diagnosis of influenza: procalcitonin is moderately elevated at 0.25. #Leukopenia, thrombocytopenia, elevated LFTs: Likely related to above. Continue to monitor, improving. Recs: completed tamiflu OK for discharge on PO Doxycycline 100 mg BID x 6 more days d/w Dr. Cruz. Yimi Liao MD, FACP [facility] ([facility]) C: [phone] O: [phone] F: [phone] Subjective Date of service: 09/14/19 Interval history: Feels well. no fever Has no complaints. Objective - Exam Narrative Exam: Physical Exam: Constitutional: Alert, cooperative. Mild distress due to coughing Head, Ears, Nose: Normocephalic, atraumatic. External ears, nose normal Eyes: Conjunctivae/corneas clear. No icterus. No ptosis. Neck: Supple, no meningeal signs Cardiovascular: S1, S2 normal. Respiratory: clear bilaterally, no wheeze GI: Soft, non-tender; bowel sounds normal. No peritoneal signs Musculoskeletal: No pedal edema, no cyanosis. Skin: No rash or abscess Hem/Lymphatic: No palpable cervical or supraclavicular nodes. No lymphangitis Psych: Mood ok. Affect normal Neurological: Awake, alert, oriented. No gross abnormality - Constitutional Vitals: Vital Signs Temp Pulse Resp BP Pulse Ox 97.8 F 77 20 148/89 97 09/14/19 12:18 09/14/19 12:18 09/14/19 12:18 09/14/19 12:18 09/14/19 12:18 Temperature -Last 24 Hours Temperature 97.8 F Temperature 98.7 F Temperature 98.7 F Temperature 98.3 F - Labs CBC & Chem 7: 09/13/19 04:34 09/10/19 04:08
== END 2019-09-14 16:01 | disposition home or self-care (01) | DRG 193 ==
LOC: ED 18:48 → 3A 09-09 05:16
PROVIDERS: ADMIT Internal Medicine; ATTEND Internal Medicine
DX: J18.9 Pneumonia, unspecified organism (principal); J96.01 Acute respiratory failure with hypoxia; N39.0 Urinary tract infection, site not specified; D69.6 Thrombocytopenia, unspecified; D72.819 Decreased white blood cell count, unspecified; I10 Essential (primary) hypertension; F17.210 Nicotine dependence, cigarettes, uncomplicated; Z71.6 Tobacco abuse counseling; Z82.49 Family history of ischemic heart disease and other diseases of the circulatory system
CPT/HCPCS: 36415; 71046; 80048; 80053; 80076; 81001; 82140; 84145; 84703; 85007; 85025; 85027; 87040; 87205; 87641; 94640; 94760; 96365; 99406; G0378; J0456; J0696; J1170; J1644; J1956; J2405; J2543; J2930; J7030; J7042; J7050

== ENCOUNTER 2021-03-30 12:44 | Emergency (ER) | payer SELFPAY ==
--- NOTE | 2021-03-30 13:38 | XRay Report ---
RIGHT ANKLE 3 VIEW(S) INDICATION / CLINICAL INFORMATION: PAIN AND SWELLING COMPARISON: None available. FINDINGS: BONES / JOINT(S): There is a spiral fracture through the distal fibular metaphysis. There is a lucenc y through the posterior malleolus suggesting an additional posterior malleolar fracture. No significa nt arthritis. SOFT TISSUES: There is swelling about the ankle. ADDITIONAL FINDINGS: None. Signer Name: Blair Au DO Signed: 03/30/2021 1:34 PM Workstation Name: [id number]
[2021-03-30] MEDS ORDERED: oxyCODONE /ACETAMINOPHEN 5-325MG TAB PO ONE (14:36)
[2021-03-30] MEDS ORDERED: ONDANSETRON 4 MG ODT TAB PO ONE (14:36)
--- NOTE | 2021-03-30 14:36 | Emergency Department Report ---
ED General Adult HPI - General Chief complaint: Extremity Injury, Lower Stated complaint: SPAINED ANKLE Time Seen by Provider: 03/30/21 14:32 Source: patient Mode of arrival: Wheelchair Limitations: Physical Limitation - History of Present Illness Initial comments: 25-year-old female patient presents to emergency department with complaints of traumatic right ankle pain starting 2 days ago. Patient states she was skating with her child when she twisted her ankle and fell in an attempt to keep her child from falling. Patient has been unable to bear weight on the right ankle since the injury occurred. No history of prior injuries to the right ankle. Denies hip pain, knee pain, foot pain, paresthesias, numbness, weakness. Denies all other complaints at this time. - Related Data Previous Rx's Medication Instructions Recorded Last Taken Type ALBUTEROL NEB's [Proventil 0.083% 2.5 mg IH Q4H PRN #30 nebu 09/14/19 Unknown Rx NEBS] Doxycycline Hyclate [Doxycycline 100 mg PO Q12HR #12 tab 09/14/19 Unknown Rx Hyclate TAB] lisinopriL [Zestril TAB] 20 mg PO QDAY #30 tablet 09/14/19 Unknown Rx Naproxen 500 mg PO BID #20 tablet 03/30/21 Unknown Rx oxyCODONE /ACETAMINOPHEN [Percocet 1 tab PO Q4HR #10 tab 03/30/21 Unknown Rx 5/325] Allergies Allergy/AdvReac Type Severity Reaction Status Date / Time No Known Allergies Allergy Verified 03/30/21 13:04 ED Review of Systems ROS: Stated complaint: SPAINED ANKLE Other details as noted in HPI Other: CARDIOVASCULAR: Negative for chest pain. PULMONARY: Negative for dyspnea. GASTROINTESTINAL: Negative for abdominal pain. MUSCULOSKELETAL: Positive for right ankle pain/swelling. NEUROLOGICAL: Negative for headache. INTEGUMENTARY: Negative for ecchymosis. ED Past Medical Hx - Past Medical History Previous Medical History?: No Hx Hypertension: Yes Hx Diabetes: No Hx Deep Vein Thrombosis: No Hx Renal Disease: No Hx Sickle Cell Disease: No Hx Seizures: No Hx Asthma: No Hx HIV: No Additional medical history: bronchitis - Surgical History Additional Surgical History: C -section - Social History Smoking Status: Current Some Day Smoker - Medications Home Medications: Home Medications Medication Instructions Recorded Confirmed Last Taken Type ALBUTEROL NEB's [Proventil 0.083% 2.5 mg IH Q4H PRN #30 nebu 09/14/19 Unknown Rx NEBS] Doxycycline Hyclate [Doxycycline 100 mg PO Q12HR #12 tab 09/14/19 Unknown Rx Hyclate TAB] lisinopriL [Zestril TAB] 20 mg PO QDAY #30 tablet 09/14/19 Unknown Rx Naproxen 500 mg PO BID #20 tablet 03/30/21 Unknown Rx oxyCODONE /ACETAMINOPHEN [Percocet 1 tab PO Q4HR #10 tab 03/30/21 Unknown Rx 5/325] ED Physical Exam - General Limitations: Physical Limitation - Other Other exam information: General: Awake, appropriately interactive, no acute distress. Neck: Supple. Full range of motion intact. Cardiovascular: Normal peripheral perfusion. Pulmonary: No respiratory distress. Patient is speaking normally without use of accessory muscles. Skin: No apparent rashes or lesions. Neurological: No facial asymmetry. Speech is clear. Follows commands. Patient is alert and oriented. Musculoskeletal: Tenderness to palpation along the right lateral malleolus with diffuse soft tissue swelling throughout the right foot and right ankle. There is no tenderness at the base of the fifth metatarsal. There is no tenderness along the distribution of the navicular bone. There is no plantar ecchymosis. Patient is unable to bear weight. Distal neurovascular and motor/sensory function is intact. Psych: Cooperative. Appropriate mood and affect. ED Course Vital Signs 03/30/21 13:06 Temperature 98.7 F Pulse Rate 86 Respiratory 16 Rate Blood Pressure 140/79 O2 Sat by Pulse 100 Oximetry ED Medical Decision Making - Radiology Data [facility] [address] [place] [address] XRay Report Signed Patient: MARYJO POLANCO MR#: [id number] : 1995 Acct:[id number] Age/Sex: 25 / F ADM Date: 03/30/21 Loc: ED Attending Dr: Ordering Physician: DONTE COTTON MD Date of Service: 03/30/21 Procedure(s): XR ankle 3+V RT Accession Number(s): [id number] cc: DONTE COTTON MD Fluoro Time In Minutes: RIGHT ANKLE 3 VIEW(S) INDICATION / CLINICAL INFORMATION: PAIN AND SWELLING COMPARISON: None available. FINDINGS: BONES / JOINT(S): There is a spiral fracture through the distal fibular metaphysis. There is a lucency through the posterior malleolus suggesting an additional posterior malleolar fracture. No significant arthritis. SOFT TISSUES: There is swelling about the ankle. ADDITIONAL FINDINGS: None. Signer Name: Blair Ramos DO Signed: 03/30/2021 1:34 PM Workstation Name: [email or web address] Transcribed By: KATIE Dictated By: BLAIR RAMOS DO Electronically Authenticated By: BLAIR RAMOS DO Signed Date/Time: 03/30/211333 DD/ 31 TD/TT: - Medical Decision Making Differential diagnosis including but not limited to: sprain, strain, fracture, contusion, dislocation, compartment syndrome On reevaluation, patient remains stable. Repeat neurovascular exam remains intact. X-rays show a spiral fracture through the distal fibular metaphysis as well as a lucency through the posterior malleolus suggestive of a fracture. No clinical indication for emergent reduction at this time. Patient will be placed in a posterior ankle splint with stirrups and discharged home with crutches, referral to orthopedics, and appropriate analgesics. Patient expressed understanding and is agreeable to plan of care. RICE precautions discussed. Strict return precautions provided. Repeat exam is unremarkable and benign. History, exam, diagnostic testing, and current condition do not suggest worrisome pathology to warrant further testing, continued ED treatment, admission, or surgical evaluation at this point. Given the low probability of a significant medical illness, it would be more likely to result in harm than benefit to perform further testing at this stage. Discussed findings, presumptive diagnosis, need for follow-up and specific signs/symptoms that should prompt immediate return to the emergency department. Instructions were explained in detail to the patient in addition to giving written discharge information. Patient expressed understanding and was given the opportunity to ask questions, all of which were satisfactorily answered prior to discharge home. Critical care attestation.: If time is entered above; I have spent that time in minutes in the direct care of this critically ill patient, excluding procedure time. ED Disposition Clinical Impression: Fracture of distal fibula Qualifiers: Encounter type: initial encounter Fracture type: closed Fracture morphology: unspecified fracture morphology Laterality: right Qualified Code(s): S82.831A - Other fracture of upper and lower end of right fibula, initial encounter for closed fracture Fracture, posterior malleolus Qualifiers: Encounter type: initial encounter Fracture type: closed Laterality: right Qualified Code(s): S82.391A - Other fracture of lower end of right tibia, initial encounter for closed fracture Disposition: TO HOME OR SELFCARE Is pt being admited?: No Does the pt Need Aspirin: No Condition: Stable Instructions: Nondisplaced Fibular Ankle Fracture Treated With Immobilization, Adult Additional Instructions: Take Naprosyn twice daily with food as needed for pain. If this medication is not sufficient in controlling your pain, take Percocet with food as directed. Do not drive or operate machinery while taking this medication. Do not consume alcohol taking this medication. Wear splint as directed. Use crutches as needed. Keep right ankle elevated as often as possible to reduce swelling. Follow-up with Dr. Maciel, orthopedics, this week. Call today to schedule an appointment. See referral information below. Return to the emergency department immediately for new or worsening symptoms. Prescriptions: Naproxen 500 mg PO BID #20 tablet oxyCODONE /ACETAMINOPHEN [Percocet 5/325] 1 tab PO Q4HR #10 tab Referrals: MAXX MACIEL MD [Staff Physician] - 3-5 Days Time of Disposition: 14:36
[2021-03-30 16:25] VITALS: BP 140/72
== END 2021-03-30 16:25 | disposition home or self-care (01) ==
LOC: ED 12:44
DX: S82.831A Other fracture of upper and lower end of right fibula, initial encounter for closed fracture (principal); S82.391A Other fracture of lower end of right tibia, initial encounter for closed fracture; I10 Essential (primary) hypertension; F17.200 Nicotine dependence, unspecified, uncomplicated; Z79.899 Other long term (current) drug therapy; Z98.890 Other specified postprocedural states; X50.1XXA Overexertion from prolonged static or awkward postures, initial encounter; Y93.89 Activity, other specified; Y92.89 Other specified places as the place of occurrence of the external cause; Y99.8 Other external cause status
CPT/HCPCS: Q0162